=== PATIENT | female | born 1995 | race Caucasian/White ===

== ENCOUNTER 2024-10-16 07:52 | Observation (INO) | payer BC, SELFPAY ==
[2024-10-16 08:10] VITALS: BMI 34.5
--- NOTE | 2024-10-16 08:10 | OBADM ---
This patient, Marisabel Whalen, admitted to the OB room Labor/Delivery/Recovery 103 for observation. Patient/family oriented to hospital policies and general routines including ID bracelet, bed and alarms, visiting hours, pain management, procedures, bathroom and other care routines, personal items, smoking policy, room service/diet, and visiting hours. Patient/Family are encouraged to report perceived risks to care and to ask questions if they do not understand what they are told or what they should do.
--- OUTSIDE RECORDS SUMMARY | 2024-10-16 11:29 | XMS_ITS | Data Portability ---
Author Organization [facility], ADMIN Address [address] [address] Assessment Encounter Date Assessment Date Assessment LastModified by Organization Details LastModified Time 06/15/2022 06/15/2022 Pt with random BRB a day after coitus every 2-3 months. pelvic ultrasound today is completely wnl- discussed results with pt. it could be that pt is having random breakthru bleeding on Lo Loestrin- will change to loestrin (dosing change) and see if that helps [email or web address] Not available 06/15/2022 15:33:59 Plan of Treatment Reminders Order Date Submit Date Provider Last Modified By Organization Details Last Modified Time Details Appointments None recorded. 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 , [facility]23 [facility] [address] [place], [address], 4 04:08:53 HbA1c (hemoglobi n A1c), blood 2023 024 [facility] [address] [place], [address], 4 17:07:19 panel 2023 024 [facility] [address] [place], [address], 4 17:07:18 pap, IG + CT/NG + reflex HPV 2023 024 [facility] [address] [facility], [place], [address], 4 13:09:08 test, urine 2023 024 emani [facility], [address], [address], [place], [address], 4 13:17:17 hormone panel, serum or plasma 2023 024 [facility]), [address] [facility], [place], [address], 4 06:09:59 Referral None recorded. Procedures None recorded. Surgeries None recorded. Imaging None recorded. Medication Orders Loestrin Fe 08/26 (28-Day) 1 mg-20 mcg (21)/75 mg (7) tablet 2021 022 [facility] [id number] [facility], [address] [facility] [facility] [place], [address], 3 16:43:00 Patient TargetsNo targets recorded. Patient Instructions Encounter Date Encounter Id Patient Instructions Last Modified By Organization Details Last Modified Time 03/17/[id number] You may find the following electronic resources helpful. Contraception: [email or web address]://www.acog.or g/womens-health/faq s/-control Planning for : https://www.acog.or g/womens-health/faq s/mqqb-wtomte-fmqvm f-ylsljsywu-pwapcwc [facility]acarias-care Abnormal menstrual bleeding: https://www.acog.or g/womens-health/faq s/anxdx-bqkaknxan-k leeding Mammography: https://www.acog.or g/womens-health/faq s/gohltwuifil-nxr-p jmwf-fjjncbdic-kxqr t-ogj-synxow-proble ms#:~:text=For%20wo men%20at%20average% 20risk,at%20least%2 0age%2075%20years. Menopause and perimenopause: https://www.acog.or g/womens-health/faq s/zkv-nvkyodvkc-udo rs STD screening and prevention: https://www.acog.or g/womens-health/faq s/pdz-dj-shrqgzw-st is Not available 03/16/2023 14:18:03 - Patient is a 27 yo here for annual exam. - Your health is very important. Exercise regularly, maintain a well-balanced diet and try to achieve and maintain an appropriate body weight. - Reviewed screening for pre-cancerous lesions of the cervix (pap smear & HPV testing when appropriate). Discussed the appropriate interval for screening (and when to initiate screening). Discussed the role of HPV in cervical cancer. Patient is up to date on pap with last pap on 03/18/2021 NILM. Due in 2023 per current ASCCP guidelines. - patient doing well with just using condoms for contraception. - Reviewed STD prevention and screening. Offered but patient declined. - All questions were answered in full. - The patient verbalized her understanding. - Reviewed instructions for the patient portal [employer] Not available 03/19/2023 21:36:34 12/04/2023 [id number] - discussed possible etiologies of abnormal periods. Given h/o complete thyroidectomy, will check TFTs along with other labs - info provided for RHINA as patient would like to achieve as well and may be difficult if can't maintain thyroid levels acceptable with h/o thyroid cancer. [employer]press[employer]el[employer]to Not available 12/05/2023 13:33:51 03/07/2024 [id number] specimen collect ion & handling* [email or web address] Not available 03/07/2024 17:06:51 - Patient is a 1 9yo @ 7w1d with CARLO 10/23/2024 (based on today's ultrasound). - Discussed the options for testing for Down syndrome and other forms of aneuploidy. Reviewed the difference between screening tests and diagnostic tests. Reviewed options for screening. Reviewed options for diagnostic testing including CVS and amniocentesis. Offered but patient declines - Reviewed carrier screening with patient. Did not do in prior . Declines screening today. Information pamphlet provided. - Handouts were provided to the patient - Recommend taking vitamins with DHA daily. - Discontinue the use of all non-medicinal drugs and chemicals - Avoid alcoholic beverages. - Patient encouraged not to smoke. - Discussed the content of care including schedule of appointments, lab work, ultrasound. - Provided information and recommendations regarding weight gain and nutrition in . Discussed various foods to avoid. - Hospital and practice style discussed with [employer] system. Patient aware only deliver out of [facility]. - New information given. - Discussed the use of the patient portal for communication during and beyond. - Discussed Covid and current office and hospital protocols. - Pt moving to [facility] at the end of March. Will make one more visit here with ultrasound + MD visit. In the meantime, will look to see where she will be transferring care. Will sign medical release form at next visit. Additional information can be found here: [email or web address].acog.or g/en/Womens%20Healt h/ [email or web address] Not available 03/07/2024 18:12:55 Reason for Referral None Reported. Results Created Date Observation Date Name Description Value Unit Range Abnormal Flag Note LastModifiedBy Organization Detail LastModifiedTime 12/04/19 24 12/05/2023 T4+TS H+LH+ FSH+P ROLAC TIN LH 22.3 mIU/m L Adult Femal e Range Folli cular phase 2.4 - 12.6 Ovula tion phase 14.0 - 95.6 Lutea l phase 1.0 - 11.4 Postm enopa usal 7.7 - 58.5 Not Available [facility] ([facility]) [address] [place], [address], 12/05/2023 06:09:58 12/04/19 24 12/05/2023 T4+TS H+LH+ FSH+P ROLAC TIN FSH 8.3 mIU/m L Adult Femal e Range Folli cular phase 3.5 - 12.5 Ovula tion phase 4.7 - 21.5 Lutea l phase 1.7 - 7.7 Postm enopa usal 25.8 - 134.8 Not Available [facility] ([facility]) [address] [place], [address], 12/05/2023 06:09:58 12/04/19 24 12/05/2023 T4+TS H+LH+ FSH+P ROLAC TIN prolactin 10.3 NG/mL 4.8-33 .4 Not Available [facility] ([facility]) [address] [place], [address], 12/05/2023 06:09:58 12/04/19 24 12/05/2023 T4+TS H+LH+ FSH+P ROLAC TIN TSH 0.044 uIU/m L 0.450- 4.500 below low normal Not Available [facility] ([facility]) [address] [facility], [place], [address], 12/05/2023 06:09:58 12/04/19 24 12/05/2023 T4+TS H+LH+ FSH+P ROLAC TIN thyroxine (T4) 13.0 ug/dL 4.5-12 .0 above high normal Not Available [facility] ([facility]) [address] [place], [address], 12/05/2023 06:09:58 12/04/19 24 12/04/2023 pregn maye test, urine result neg neg Not Available [address] [place] [address], [address], 12/04/2023 10:08:57 12/04/19 24 12/04/2023 pregn maye test, urine internal control checked neg neg Not Available [address] [place] [address], [address], 12/04/2023 10:08:57 03/07/20 24 03/08/2024 CBC/D /PLT+ RPR+R H+ABO +MONET GG... HBsAg screen NEGATI VE negati ve Not Available [facility] ([facility]) [address] [place], [address], 03/09/2024 17:07:18 03/07/20 24 03/08/2024 CBC/D /PLT+ RPR+R H+ABO +MONET GG... HCV Ab NON REACTI VE non reacti ve Not Available [facility] ([facility]) [address] [facility], [place], [address], 03/09/2024 17:07:18 03/07/20 24 03/08/2024 CBC/D /PLT+ RPR+R H+ABO +MONET GG... interpretati on: COMMEN T Not infec porter with HCV unles s early or acute infec tion is suspe cted (whic h may be delay ed in an immun ocomp romis ed indiv idual ), or other evide nce exist s to indic ate HCV infec tion. Not Available [facility] ([facility]) [address] [facility], [place], [address], 03/09/2024 17:07:18 03/07/20 24 03/08/2024 CBC/D /PLT+ RPR+R H+ABO +MONET GG... RPR NON REACTI VE non reacti ve Not Available [facility] ([facility]) [address] [facility], [place], [address], 03/09/2024 17:07:18 03/07/20 24 03/08/2024 CBC/D /PLT+ RPR+R H+ABO +MNOET GG... rubella antibodies, IgG 1.59 index immune >0.99 Non-i mmune <0.90 Equiv ocal 0.90 - 0.99 Immun e >0.99 Not Available [facility] ([facility]) [address] [facility], [place], [address], 03/09/2024 17:07:18 03/07/20 24 03/08/2024 CBC/D /PLT+ RPR+R H+ABO +MONET GG... ABO grouping O Not Available [facility]) [address] [facility], [place], [address], 03/09/2024 17:07:18 03/07/20 24 03/08/2024 CBC/D /PLT+ RPR+R H+ABO +MONET GG... Rh factor POSITI VE Pleas e note: Prior recor ds for this patie nt's ABO / Rh type are not avail able for addit ional verif icati on. Not Available [facility] ([facility]) [address] [place], [address], 03/09/2024 17:07:18 03/07/20 24 03/08/2024 CBC/D /PLT+ RPR+R H+ABO +MONET GG... antibody screen NEGATI VE negati ve Not Available [facility] ([facility]) [address] [place], [address], 03/09/2024 17:07:18 03/07/20 24 03/08/2024 CBC/D /PLT+ RPR+R H+ABO +MONET GG... HIV Ab/P24 Ag screen NON REACTI VE non reacti ve HIV-1 /HIV- 2 antib odies and HIV-1 p24 antig en were NOT detec porter. There is no labor atory evide nce of HIV infec tion. HIV Negat gianluca Not Available [facility] ([facility]) [address] [place], [address], 03/09/2024 17:07:18 03/07/20 24 03/08/2024 CBC/D /PLT+ RPR+R H+ABO +MONET GG... WBC 7.3 x10e3 /uL 3.4-10 .8 normal Not Available [facility] ([facility]) [address] [place], [address], 03/09/2024 17:07:18 03/07/20 24 03/08/2024 CBC/D /PLT+ RPR+R H+ABO +MONET GG... RBC 4.39 x10e6 /uL 3.77-5 .28 normal Not Available [facility] ([facility]) [address] [facility] [place], [address], 03/09/2024 17:07:18 03/07/20 24 03/08/2024 CBC/D /PLT+ RPR+R H+ABO +MONET GG... hemoglobin 14.2 g/dL 11.1-1 5.9 normal Not Available [facility] ([facility]) [address] [facility], [place], [address], 03/09/2024 17:07:18 03/07/20 24 03/08/2024 CBC/D /PLT+ RPR+R H+ABO +MONET GG... hematocrit 41.9 % 34.0-4 6.6 normal Not Available [facility] ([facility]) [address] [facility], [place], [address], 03/09/2024 17:07:18 03/07/20 24 03/08/2024 CBC/D /PLT+ RPR+R H+ABO +MONET GG... MCV 95 fL 79-97 normal Not Available [facility] ([facility]) [address] [place], [address], 03/09/2024 17:07:18 03/07/20 24 03/08/2024 CBC/D /PLT+ RPR+R H+ABO +MONET GG... MCH 32.3 pg 26.6-3 3.0 normal Not Available [facility] ([facility]) [address] [place], [address], 03/09/2024 17:07:18 03/07/20 24 03/08/2024 CBC/D /PLT+ RPR+R H+ABO +MONET GG... MCHC 33.9 g/dL 31.5-3 5.7 normal Not Available [facility] ([facility]) [address] [place], [address], 03/09/2024 17:07:18 03/07/20 24 03/08/2024 CBC/D /PLT+ RPR+R H+ABO +MONET GG... RDW 11.8 % 11.7-1 5.4 Not Available [facility] ([facility]) [address] [facility], [place], [address], 03/09/2024 17:07:18 03/07/20 24 03/08/2024 CBC/D /PLT+ RPR+R H+ABO +MONET GG... platelets 343 x10e3 /uL 150-45 0 normal Not Available [facility] ([facility]) [address] [facility], [place], [address], 03/09/2024 17:07:18 03/07/20 24 03/08/2024 CBC/D /PLT+ RPR+R H+ABO +MONET GG... neutrophils 72 % not estab. normal Not Available [facility] ([facility]) [address] [facility], [place], [address], 03/09/2024 17:07:18 03/07/20 24 03/08/2024 CBC/D /PLT+ RPR+R H+ABO +MONET GG... lymphs 19 % not estab. normal Not Available [facility] ([facility]) [address] [facility], [place], [address], 03/09/2024 17:07:18 03/07/20 24 03/08/2024 CBC/D /PLT+ RPR+R H+ABO +MONET GG... monocytes 7 % not estab. normal Not Available [facility] ([facility]) [address] [facility], [place], [address], 03/09/2024 17:07:18 03/07/20 24 03/08/2024 CBC/D /PLT+ RPR+R H+ABO +OMNET GG... eos 2 % not estab. normal Not Available [facility] ([facility]) [address] [facility], [place], [address], 03/09/2024 17:07:18 03/07/20 24 03/08/2024 CBC/D /PLT+ RPR+R H+ABO +MONET GG... basos 0 % not estab. normal Not Available [facility] ([facility]) [address] [facility], [place], [address], 03/09/2024 17:07:18 03/07/20 24 03/08/2024 CBC/D /PLT+ RPR+R H+ABO +MONET GG... immature cells HEALTH CLAIMS EXAMINER Not Available [facility] ([facility]) [address] [facility], [place], [address], 03/09/2024 17:07:18 03/07/20 24 03/08/2024 CBC/D /PLT+ RPR+R H+ABO +MONET GG... neutrophils (absolute) 5.2 x10e3 /uL 1.4-7. 0 normal Not Available [facility] ([facility]) [address] [facility], [place], [address], 03/09/2024 17:07:18 03/07/20 24 03/08/2024 CBC/D /PLT+ RPR+R H+ABO +MONET GG... lymphs (absolute) 1.4 x10e3 /uL 0.7-3. 1 normal Not Available [facility] ([facility]) [address] [facility], [place], [address], 03/09/2024 17:07:18 03/07/20 24 03/08/2024 CBC/D /PLT+ RPR+R H+ABO +MONET GG... monocytes(ab solute) 0.5 x10e3 /uL 0.1-0. 9 normal Not Available [facility] ([facility]) [address] [place], [address], 03/09/2024 17:07:18 03/07/20 24 03/08/2024 CBC/D /PLT+ RPR+R H+ABO +MONET GG... eos (absolute) 0.2 x10e3 /uL 0.0-0. 4 normal Not Available [facility] ([facility]) [address] [facility], [place], [address], 03/09/2024 17:07:18 03/07/20 24 03/08/2024 CBC/D /PLT+ RPR+R H+ABO +MONET GG... baso (absolute) 0.0 x10e3 /uL 0.0-0. 2 normal Not Available [facility] ([facility]) [address] [facility], [place], [address], 03/09/2024 17:07:18 03/07/20 24 03/08/2024 CBC/D /PLT+ RPR+R H+ABO +MONET GG... immature granulocytes 0 % not estab. Not Available [facility] ([facility]) [address] [facility], [place], [address], 03/09/2024 17:07:18 03/07/20 24 03/08/2024 CBC/D /PLT+ RPR+R H+ABO +MONET GG... immature grans (abs) 0.0 x10e3 /uL 0.0-0. 1 Not Available [facility] ([facility]) [address] [facility], [place], [address], 03/09/2024 17:07:18 03/07/20 24 03/08/2024 CBC/D /PLT+ RPR+R H+ABO +MONET GG... NRBC HEALTH CLAIMS EXAMINER Not Available [facility] ([facility]) [address] [place], [address], 03/09/2024 17:07:18 03/07/20 24 03/08/2024 CBC/D /PLT+ RPR+R H+ABO +MONET GG... hematology comments: HEALTH CLAIMS EXAMINER Not Available [facility] ([facility]) [address] [place], [address], 03/09/2024 17:07:18 03/07/20 24 03/08/2024 CBC/D /PLT+ RPR+R H+ABO +MONET GG... specific gravity 1.015 1.005- 1.030 normal Not Available [facility] ([facility]) [address] [facility], [place], [address], 03/09/2024 17:07:18 03/07/20 24 03/08/2024 CBC/D /PLT+ RPR+R H+ABO +MONET GG... pH 6.0 5.0-7. 5 normal Not Available [facility] ([facility]) [address] [facility], [place], [address], 03/09/2024 17:07:18 03/07/20 24 03/08/2024 CBC/D /PLT+ RPR+R H+ABO +MONET GG... urine-color YELLOW yellow Not Available [facility] ([facility]) [address] [facility], [place], [address], 03/09/2024 17:07:18 03/07/20 24 03/08/2024 CBC/D /PLT+ RPR+R H+ABO +MONET GG... appearance CLEAR clear Not Available [facility] ([facility]) [address] [facility], [place], [address], 03/09/2024 17:07:18 03/07/20 24 03/08/2024 CBC/D /PLT+ RPR+R H+ABO +MONET GG... WBC esterase NEGATI VE negati ve Not Available [facility] ([facility]) [address] [facility], [place], [address], 03/09/2024 17:07:18 03/07/20 24 03/08/2024 CBC/D /PLT+ RPR+R H+ABO +MONET GG... protein NEGATI VE negati ve/tra ce Not Available [facility] ([facility]) [address] [facility], [place], [address], 03/09/2024 17:07:18 03/07/20 24 03/08/2024 CBC/D /PLT+ RPR+R H+ABO +MONET GG... glucose NEGATI VE negati ve Not Available [facility] ([facility]) [address] [facility], [place], [address], 03/09/2024 17:07:18 03/07/20 24 03/08/2024 CBC/D /PLT+ RPR+R H+ABO +MONET GG... ketones NEGATI VE negati ve Not Available [facility] ([facility]) [address] [facility], [place], [address], 03/09/2024 17:07:18 03/07/20 24 03/08/2024 CBC/D /PLT+ RPR+R H+ABO +MONET GG... occult blood NEGATI VE negati ve Not Available [facility] ([facility]) [address] [facility], [place], [address], 03/09/2024 17:07:18 03/07/20 24 03/08/2024 CBC/D /PLT+ RPR+R H+ABO +MONET GG... bilirubin NEGATI VE negati ve Not Available [facility] ([facility]) [address] [place], [address], 03/09/2024 17:07:18 03/07/20 24 03/08/2024 CBC/D /PLT+ RPR+R H+ABO +MONET GG... urobilinogen ,semi-qn 0.2 mg/dL 0.2-1. 0 normal Not Available [facility] ([facility]) [address] [place], [address], 03/09/2024 17:07:18 03/07/20 24 03/08/2024 CBC/D /PLT+ RPR+R H+ABO +MONET GG... nitrite, urine NEGATI VE negati ve Not Available [facility] ([facility]) [address] [facility], [place], [address], 03/09/2024 17:07:18 03/07/20 24 03/08/2024 CBC/D /PLT+ RPR+R H+ABO +MONET GG... microscopic examination COMMEN T Micro scopi c follo ws if indic ated. Not Available [facility] ([facility]) [address] [facility], [place], [address], 03/09/2024 17:07:18 03/07/20 24 03/08/2024 CBC/D /PLT+ RPR+R H+ABO +MONET GG... microscopic examination SEE BELOW: Micro scopi c was indic ated and was perfo rmed. Not Available [facility] ([facility]) [address] [facility], [place], [address], 03/09/2024 17:07:18 03/07/20 24 03/08/2024 CBC/D /PLT+ RPR+R H+ABO +MONET GG... WBC NONE SEEN /hpf 0 - 5 Not Available [facility] ([facility]) [address] [place], [address], 03/09/2024 17:07:18 03/07/20 24 03/08/2024 CBC/D /PLT+ RPR+R H+ABO +MONET GG... RBC NONE SEEN /hpf 0 - 2 Not Available [facility] ([facility]) [address] [place], [address], 03/09/2024 17:07:18 03/07/20 24 03/08/2024 CBC/D /PLT+ RPR+R H+ABO +MONET GG... epithelial cells (non renal) 0-10 /hpf 0 - 10 Not Available [facility] ([facility]) [address] [place], [address], 03/09/2024 17:07:18 03/07/20 24 03/08/2024 CBC/D /PLT+ RPR+R H+ABO +MONET GG... epithelial cells (renal) HEALTH CLAIMS EXAMINER Not Available [facility] ([facility]) [address] [facility], [place], [address], 03/09/2024 17:07:18 03/07/20 24 03/08/2024 CBC/D /PLT+ RPR+R H+ABO +MONET GG... casts NONE SEEN /lpf none seen Not Available [facility] ([facility]) [address] [facility], [place], [address], 03/09/2024 17:07:18 03/07/20 24 03/08/2024 CBC/D /PLT+ RPR+R H+ABO +MONET GG... cast type HEALTH CLAIMS EXAMINER Not Available [facility] ([facility]) [address] [facility], [place], [address], 03/09/2024 17:07:18 03/07/20 24 03/08/2024 CBC/D /PLT+ RPR+R H+ABO +MONET GG... crystals HEALTH CLAIMS EXAMINER Not Available [facility] ([facility]) [address] [facility], [place], [address], 03/09/2024 17:07:18 03/07/20 24 03/08/2024 CBC/D /PLT+ RPR+R H+ABO +MONET GG... crystal type HEALTH CLAIMS EXAMINER Not Available [facility] ([facility]) [address] [facility], [place], [address], 03/09/2024 17:07:18 03/07/20 24 03/08/2024 CBC/D /PLT+ RPR+R H+ABO +MONET GG... mucus threads HEALTH CLAIMS EXAMINER Not Available [facility] ([facility]) [address] [facility], [place], [address], 03/09/2024 17:07:18 03/07/20 24 03/08/2024 CBC/D /PLT+ RPR+R H+ABO +MONET GG... bacteria NONE SEEN none seen/f ew Not Available [facility] ([facility]) [address] [facility], [place], [address], 03/09/2024 17:07:18 03/07/20 24 03/08/2024 CBC/D /PLT+ RPR+R H+ABO +MONET GG... yeast HEALTH CLAIMS EXAMINER Not Available [facility] ([facility]) [address] [facility], [place], [address], 03/09/2024 17:07:18 03/07/20 24 03/08/2024 CBC/D /PLT+ RPR+R H+ABO +MONET GG... trichomonas HEALTH CLAIMS EXAMINER Not Available [facility] ([facility]) [address] [facility], [place], [address], 03/09/2024 17:07:18 03/07/20 24 03/08/2024 CBC/D /PLT+ RPR+R H+ABO +MONET GG... comment HEALTH CLAIMS EXAMINER Not Available [facility] ([facility]) [address] [facility], [place], [address], 03/09/2024 17:07:18 03/07/20 24 03/09/2024 CBC/D /PLT+ RPR+R H+ABO +MONET GG... urine culture,pren atal, w/gbs FINAL REPORT Not Available [facility] ([facility]) [address] [facility], [place], [address], 03/09/2024 17:07:18 03/07/20 24 03/09/2024 CBC/D /PLT+ RPR+R H+ABO +MONET GG... result 1 COMMEN T Mixed uroge nital sakina 50,00 0-100 ,000 colon y formi ng units per mL Not Available [facility] ([facility]) [address] [place], [address], 03/09/2024 17:07:18 03/07/20 24 03/08/2024 HEMOG LOBIN A1C hemoglobin A1C 4.6 % 4.8-5. 6 below low normal Predi abete s: 5.7 - 6.4 Diabe lyndsey: >6.4 Glyce heather contr ol for adult s with diabe lyndsey: <7.0 Not Available [facility] ([facility]) [address] [place], [address], 03/09/2024 17:07:19 03/07/20 24 03/09/2024 IGP, CTNG, RFX APTIM A HPV ASCU chlamydia, nuc. acid amp NEGATI VE negati ve Not Available [facility] ([facility]) [address] [place], [address], 03/13/2024 13:09:08 03/07/20 24 03/09/2024 IGP, CTNG, RFX APTIM A HPV ASCU gonococcus, nuc. acid amp NEGATI VE negati ve Not Available [facility] ([facility]) [address] [place], [address], 03/13/2024 13:09:08 03/07/20 24 03/13/2024 IGP, CTNG, RFX APTIM A HPV ASCU diagnosis: COMMEN T NEGAT GIANLUCA FOR INTRA EPITH ELIAL LESIO N OR SB DELGADO . THIS SPECI MEN WAS RESCR EENED PART OF OUR QUALI TY CONTR OL PROGR AM. Not Available [facility] ([facility]) [address] [place], [address], 03/13/2024 13:09:08 03/07/20 24 03/13/2024 IGP, CTNG, RFX APTIM A HPV ASCU specimen adequacy: COMMEN T Satis facto ry for evalu ation . No endoc ervic al compo nent is ident ified . Not Available [facility] ([facility]) [address] [place], [address], 03/13/2024 13:09:08 03/07/20 24 03/13/2024 IGP, CTNG, RFX APTIM A HPV ASCU clinician provided ICD10: LINDA Brunner Z12.4 Not Available [facility] ([facility]) [address] [place], [address], 03/13/2024 13:09:08 03/07/20 24 03/13/2024 IGP, CTNG, RFX APTIM A HPV ASCU performed by: LINDA [email or web address], Cytot echno logis t (ASCP ) Not Available [facility] ([facility]) [address] [place], [address], 03/13/2024 13:09:08 03/07/20 24 03/13/2024 IGP, CTNG, RFX APTIM A HPV ASCU QC reviewed by: LINDA [email or web address], Super visor y [employer] e[employer] logis t (ASCP ) Not Available [facility] ([facility]) [address] [place], [address], 03/13/2024 13:09:08 03/07/20 24 03/13/2024 IGP, CTNG, RFX APTIM A HPV ASCU . . Not Available [facility] ([facility]) [address] [place], [address], 03/13/2024 13:09:08 03/07/20 24 03/13/2024 IGP, CTNG, RFX APTIM A HPV ASCU note: LINDA Brunner The Pap smear is a scree betty test desig israel to aid in the detec tion of demetra ligna nt and malig nant condi tions of the uteri ne cervi x. It is not a diagn ostic proce dure and shoul d not be used as the sole means of detec ting cervi scarlet cance r. Both false -posi tive and false -nega tive repor ts do occur . Not Available [facility] ([facility]) [address] [facility] [place], [address], 03/13/2024 13:09:08 03/07/20 24 03/13/2024 IGP, CTNG, RFX APTIM A HPV ASCU test methodology: COMMEN T This liqui d based ThinP rep(R ) pap test was thania wood with the use of an image guide mario richardson. Not Available [facility] ([facility]) [address] [facility], [place], [address], 03/13/2024 13:09:08 03/07/20 24 03/13/2024 IGP, CTNG, RFX APTIM A HPV ASCU . COMMEN T The HPV DNA refle x crite jani were not met with this speci men resul t there fore, no HPV testi ng was perfo rmed. Not Available [facility] ([facility]) [address] [facility], [place], [address], 03/13/2024 13:09:08 03/27/20 24 04/04/2024 MATER NIT21 PLUS CORE+ SCA gestation Single ton Not Available [facility] ([facility]) [address] [place], [address], 04/04/2024 04:08:53 03/27/20 24 04/04/2024 MATER NIT21 PLUS CORE+ SCA fraction 7% Not Available [facility] ([facility]) [address] [place], [address], 04/04/2024 04:08:53 03/27/20 24 04/04/2024 MATER NIT21 PLUS CORE+ SCA gestational age > or = 9W: Yes Not Available [facility] ([facility]) [address] [place], [address], 04/04/2024 04:08:53 03/27/20 24 04/04/2024 MATER NIT21 PLUS CORE+ SCA test result Negati ve Not Available [facility] ([facility]) [address] [facility], [place], [address], 04/04/2024 04:08:53 03/27/20 24 04/04/2024 MATER NIT21 PLUS CORE+ SCA label drier comments Linda Arreola speci men showe d an expec porter repre senta tion of chrom osome 21, 18 and 13 mater ial. Clini scarlet corre latio n is sugge sted. Not Available [facility] ([facility]) [address] [facility], [place], [address], 04/04/2024 04:08:53 03/27/20 24 04/04/2024 MATER NIT21 PLUS CORE+ SCA approved by Linda rod MD, PhD, [facility], [facility] Labor atori es Not Available [facility] ([facility]) [address] [facility], [place], [address], 04/04/2024 04:08:53 03/27/20 24 04/04/2024 MATER NIT21 PLUS CORE+ SCA trisomy 21 (down syndrome) Negati ve Not Available [facility] ([facility]) [address] [place], [address], 04/04/2024 04:08:53 03/27/20 24 04/04/2024 MATER NIT21 PLUS CORE+ SCA trisomy 18 (osman syndrome) Negati ve Not Available [facility] ([facility]) [address] [place], [address], 04/04/2024 04:08:53 03/27/20 24 04/04/2024 MATER NIT21 PLUS CORE+ 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 Not Available [facility] ([facility]) [address] [place], [address], 04/04/2024 04:08:53 03/27/20 24 04/04/2024 MATER NIT21 PLUS CORE+ SCA sex Commen t Consi stent with Male Not Available [facility] ([facility]) [address] [place], [address], 04/04/2024 04:08:53 03/27/20 24 04/04/2024 MATER NIT21 PLUS CORE+ 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 Not Available [facility] ([facility]) [address] [place], [address], 04/04/2024 04:08:53 03/27/20 24 04/04/2024 MATER NIT21 PLUS CORE+ 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 Not Available [facility] ([facility]) [address] [place], [address], 04/04/2024 04:08:53 03/27/20 24 04/04/2024 MATER NIT21 PLUS CORE+ 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 The NPV for SCA and ESS canno t be calcu lated as SCA and ESS are only repor porter when an abnor malit y is detec porter. Not Available [facility] ([facility]) [address] [place], [address], 04/04/2024 04:08:53 03/27/20 24 04/04/2024 MATER NIT21 PLUS CORE+ SCA positive predictive value N/A Not Available [facility] ([facility]) [address] [facility], [place], [address], 04/04/2024 04:08:53 03/27/20 24 04/04/2024 MATER NIT21 PLUS CORE+ SCA about the test Commen t The Mater niT(R ) 21 PLUS labor atory -deve loped test (LDT) lyssa zes circu latin g cell- free DNA from a mater nal blood sampl e. This test is used for scree betty purpo ses and not diagn ostic . Clini scarlet corre latio n is recom lisa d. Valid ation data on twin pregn ancie s is limit ed and the abili ty of this test to detec t aneup loidy in highe r multi ple gesta tions has not yet been valid ated. Not Available [facility] ([facility]) [address] [facility], [place], [address], 04/04/2024 04:08:53 03/27/20 24 04/04/2024 MATER NIT21 PLUS CORE+ SCA test method Commen t See Notes Circu latin g cell- free DNA was purif ied from the plasm a compo nent of mater nal blood . The extra cted DNA was then conve rted into a [employer] DNA davy ry for aneup loidy lyssa sis of chrom osome s 21, 18, and 13 via next gener ation seque ncing .[1] Optio nal findi ngs based on the test order inclu de sex chrom osome aneup loidy (SCA) [2], and enhan chantel seque ncing serie s (ESS) [3], which will only be repor porter on as an addit ional findi ng when an abnor malit y is detec porter. SCA testi ng inclu harry infor matio n on X and Y repre senta tion, while ESS testi ng inclu harry delet ions in selec porter regio ns (22q, 15q, 11q, 8q, 5p, 4p, 1p) and triso my of chrom osome s 16 and 22. Not Available [facility] ([facility]) [address] [facility], [place], [address], 04/04/2024 04:08:53 03/27/20 24 04/04/2024 MATER NIT21 PLUS CORE+ SCA performance Commen t The perfo rmanc e forest cteri stics of the Mater niT(R ) 21 PLUS labor atory -deve loped test (LDT) have been deter mined in a clini scarlet valid ation study with pregn ant women at incre ased risk for chrom osoma l aneup loidy .[1-4 ] Not Available [facility] ([facility]) [address] [facility], [place], [address], 04/04/2024 04:08:53 03/27/20 24 04/04/2024 MATER NIT21 PLUS CORE+ SCA performance characterist ics Note ----- ----- ----- ----- ----- ----- ----- ----- ----- ----- ----- ---- ! Sex ! Accur acy: 99.4% ! !---- ----- ----- ----- ----- ----- ----- ----- ----- ----- ----- ---! ! Regio n (asso ciate d syndr ome) ! Est. Sens# ! Est. Spec ! !---- ----- ----- ----- ----- ----- ----- ----- ----- ----- ----- ---! ! Rupertoo my 21 (Down Syndr ome) ! 99.1% ! 99.9% ! !---- ----- ----- ----- ----- ----- ----- ----- ----- ----- ----- ---! ! Rupertoo my 18 (Edwa rds Syndr ome) ! >99.9 % ! 99.6% ! !---- ----- ----- ----- ----- ----- ----- ----- ----- ----- ----- ---! ! Imani my 13 (Pata u Syndr ome) ! 91.7% ! 99.7% ! !---- ----- ----- ----- ----- ----- ----- ----- ----- ----- ----- ---! ! Sex Chrom osome Aneup jez es## ! 96.2% ! 99.7% ! !---- ----- ----- ----- ----- ----- ----- ----- ----- ----- ----- ---! * As repor porter in ISCA datab ase nstd3 7 [http s://w ww.nc bi.nl .[facility] .gov/ dbvar /stud ies/n std37 / ] # Estim ated Sensi tivit y. Sensi tivit y estim ated acros s the obser arabella size distr ibuti on of each syndr ome [per ISCA datab ase nstd3 7] and acros s the range of fract ions obser arabella in routi ne clini scarlet NIPT. Actua l sensi tivit y can also be influ enced by other facto rs such as the size of the event , total seque nce count s, ampli ficat ion bias, or seque nce bias. ## Singl eton gesta tion only. Not Available [facility] ([facility]) [address] [facility], [place], [address], 04/04/2024 04:08:53 03/27/20 24 04/04/2024 MATER NIT21 PLUS CORE+ SCA limitations of the test Commen t While the resul ts of these tests are highl y relia ble, disco rdant resul ts, inclu ding inacc urate sex predi ction , may occur due to place ntal, mater nal, or mosai cism or neopl asm; vanis liane twin; prior mater nal organ trans plant ; or other cause s. These tests are scree betty tests and not diagn ostic ; they do not repla ce the accur acy and preci noble of prena malik diagn osis with [facility] or amnio cente sis. A patie nt with a posit gianluca test resul t shoul d be refer red for ruslan ic couns eling and offer ed invas gianluca prena malik diagn osis for confi rmati on of test resul ts.[5 ] The resul ts of this testi ng, inclu ding the benef its and limit ation s, shoul d be discu ssed with a quali fied healt hcare provi shankar. Pregn maye manag ement decis ions, inclu ding termi natio n of the pregn maye, shoul d not be based on the resul ts of these tests alone . The healt hcare provi shankar is respo nsibl e for the use of this infor matio n in the manag ement of their patie nt. Sex chrom osoma l aneup loidi es are not repor table for known multi ple gesta tions . A negat gianluca resul t does not ensur e an unaff ected pregn maye nor does it exclu de the possi bilit y of other chrom osoma l abnor malit ies or defec ts which are not a part of these tests . An uninf ormat gianluca resul t may be repor porter, the cause s of which may inclu de, but are not limit ed to, insuf ficie nt seque ncing cover age, noise or artif acts in the regio n, ampli ficat ion or seque ncing bias, or insuf ficie nt fract ion. These tests are not inten ded to ident latasha pregn ancie s at risk for neura l tube defec ts or ventr al wall defec ts. Testi ng for whole chrom osome abnor malit ies (incl uding sex chrom osome s) and for subch romos omal abnor malit ies could lead to the poten tial disco very of both and mater nal genom ic abnor malit ies that could have major , minor , or no, clini scarlet signi fican ce. Evalu ating the signi fican ce of a posit gianluca or a non-r eport able resul t may invol ve both invas gianluca testi ng and addit ional studi es on the mothe r. Such inves tigat ions may lead to a diagn osis of mater nal chrom osoma l or subch romos omal abnor malit ies, which on occas ion may be assoc iated with benig n or malig nant mater nal neopl asms. These tests may not accur ately ident latasha tripl oidy, yassine chantel rearr angem ents, or the preci se locat ion of subch romos omal dupli catio ns or delet ions; these may be detec porter by prena malik diagn osis with CVS or amnio cente sis. The abili ty to repor t resul ts may be impac porter by mater nal BMI, mater nal weigh t, mater nal syste heather lupus eryth emato mayra (SLE) and/o r by certa in pharm aceut ical agent s such as low molec ular weigh t hepar in (for examp le: Loven ox(R) , Xapar in(R) , Clexa ne(R) and Fragm in(R) ). Not Available [facility] ([facility]) [address], [place], [address], 04/04/2024 04:08:53 03/27/20 24 04/04/2024 MATER NIT21 PLUS CORE+ SCA note Commen t See Notes [employer] is a subsi diary of Labor atory Corpo ratio n of [employer], using the brand [employer]. This test was devel oped and its perfo rmanc e foerst cteri stics deter mined by [facility]. It has not been clear ed or appro arabella by the Food and Drug Admin istra tion. This labor atory is certi fied under the Clini scarlet Labor atory Impro vemen t Amend ments (CLIA ) as quali fied to perfo rm high compl exity clini scarlet labor atory testi ng and accre dited by the Shaina tadeo of [employer] [employer] logis ts (CAP) . If there is futur e clini scarlet need for addin g Mater niT GENOM E testi ng, this speci men will be avail able until term. [facility] sampl es will not be retai israel beyon d 60 days. [facility] patie nts will have to send a new sampl e for re-se quenc ing ([facility] Test Code: 34438 4). Not Available [facility] ([facility]) [address] [facility], [place], [address], 04/04/2024 04:08:53 03/27/20 24 04/04/2024 MATER NIT21 PLUS CORE+ SCA references Commen t 1. Dale TADEO, et al. [facility] Med. 2012; 14(3) :296- 305. 2. Abdulaziz JONES, et al. Prena t Diag. 2013; 33(6) :591- 597. 3. Patrice C, et al. Clin Chem. 2015 Nov;6 1(4): 608-6 16. 4. Dale TADEO, et al. [facility] Med. 2011; 13(11 ):913 -920. 5. ACOG/ SMFM Pract ice Bulle tin No. 226, May 2020. Not Available [facility] ([facility]) [address] [facility], [place], [address], 04/04/2024 04:08:53 03/27/20 24 04/04/2024 MATER NIT21 PLUS CORE+ SCA pdf . Not Available [facility] ([facility]) [address] [facility], [place], [address], 04/04/2024 04:08:53 06/15/20 22 06/15/2022 US, trans vagin al No observ ation record ed. [facility] [address], [place], [address], 03/19/2023 21:32:40 03/07/2003/07/2024 US, obste tric, 1st trime ster No observ ation record ed. [facility] [address], [place], [address], 03/30/2024 13:01:18 03/27/20 24 03/27/2024 US, obste tric, 1st trime ster No observ ation record ed. [facility] [address], [place], [address], 03/29/2024 15:42:02 Result Notes None recorded. 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 On 12/12/2019 TSH 1.74, FT 1.19, T3 135 (wnl). On 02/26 TSH 2.54, fT4 1.22. [x] On 05/07 at 27w3 TSH 3.0, freeT4 0.095. Epic message sent to Dr. Gamez (caesar) w/results , no need to start meds. Jaimee Hernandez MD [address], [place], [place], [address], [facility] 17:57:46 Routine antenata l care Completed O+, rubella NON-immun e, declined genetic screening , AFP neg, [x] s/p flu shot on 04/16/2020 [x] s/p tdap on 05/07 [x ] GBS done on 07/09/2020 neg Jaimee Hernandez MD [address] [facility] [address], [place], [place], [address], [facility] 17:57:46 Asthma [id number] Completed Jaimee Hernandez MD [address] [facility] [address], [place], [place], [address], [facility] 17:57:46 Anemia [id number] Completed Hgb 9.6 at 27w3 on 05/07/2020 . start Fe/colace Jaimee Hernandez MD [address] [facility] [address], [place], [place], [address], [facility] 17:57:46 Mass of thyroid gland 119784111 Active 2019 Thyroid mass: seen by endo, FNA on 01/03/2020 path showing follicula r lesion of unknown significa nt (15% risk of malignanc y) during . Was repeat after , per patient continued to shows follicula r lesion of unknown significa nce and plans to have surgery for removal on 05/04/2021 . On 12/12/2019 TSH 1.74, FT 1.19, T3 135 (wnl). Jaimee Hernandez MD [address] [facility] [address], [place], [place], [address], [facility] 16:43:46 Pregnanc y [id number] Completed 201908/18/2020 Jaimee Hernandez MD [address] [facility] [address], [place], [place], [address], [facility] 4 16:57:30 Pregnanc y [id number] Completed 202304/05/2024 Jaimee Hernandez MD [address] [facility] [address], [place], [address], [facility] 4 16:57:30 Routine antenata l care Completed - dating by US on 03/07/2024 = 7w1 - O+, rubella immune - cell free DNA wnl Jaimee Hernandez MD [address] [facility] [address], [place], [place], [address], [facility] 4 17:59:08 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 Completed - s/p complete thyroidec meena for papillary thyroid carcinoma (2019) - f/b endo - on levothyro xine (137mcg 5d/w, half tab 2d/w) - on 03/05/2024 : TSH 2.734, free T4 1.29 Jaimee Hernandez MD [address] [facility] [address], [place], [place], [address], [facility] 4 18:09:13 Asthma [id number] Completed Jaimee Hernandez MD [address] [facility] [address], [place], [place], [address], [facility] 4 18:09:17 Migraine [id number] Completed Jaieme Hernandez MD [address] [facility] [address], [place], [place], [address], [facility] 4 18:09:25 Problem Notes None recorded. Procedures Surgical History Date Name Laterality Status Provider Name and Address Organization Details Recorded Time 03/27/20 24 MW USG First Trimester completed DEBBY CURRAN [facility] 03/27/2024 15:20:26 03/07/20 24 U/S OB FIRST TRIMESTER ([facility] completed KAN GALLEGOS [facility] 03/07/2024 15:30:51 03/07/20 24 Date of Last Pap Smear completed Jaimee Hernandez MD [address] [facility] [address], [place], [address], [place] [facility] 03/13/2024 16:41:05 06/15/20 22 MW USG GYNE completed DEBBY CURRAN [place] [facility] 06/15/2022 15:21:40 05/04/20 21 thyroidectomy completed Jaimee Hernandez MD [address], [place], [address], [place] [facility] 10/24/2021 21:00:53 08/13/19 21 Vaginal Delivery completed Jaimee Hernandez MD [address], [place], [address], [place] [facility] 08/18/2020 17:59:41 08/04/20 20 MW USG Third Trimester completed [place]BB[place] CURRAN [place] [facility] 08/04/2020 11:28:02 08/04/20 20 Non-Stress Test [facility] completed Jaimee Hernandez MD [address], [place], [address], [place] [facility] 08/01/2020 21:36:31 07/09/20 20 MW USG Third Trimester completed DEBB[place] CURRAN [place] [facility] 07/09/2020 10:26:51 extraction of wisdom tooth completed Jaimee Hernandez MD [address], [place], [address], [place] [facility] 04/25/2020 10:49:10 Imaging Results Imaging Date Name Status LastModified by Organization Details LastModified Time 06/15/2022 US, transvaginal completed [address], [place], [address], 03/19/2023 21:32:40 03/07/2024 US, obstetric, 1st trimester completed [address], [place], [address], 03/30/2024 13:01:18 03/27/2024 US, obstetric, 1st trimester completed [address], [place], [address], 03/29/2024 15:42:02 Procedure Notes None recorded. Medical Equipment None Reported. Allergies Allergen ID Allergen Name Allergen Category Reaction Reaction Severity Criticality Documentation Date Start Date Code Code System Note Provider Name and Address Organization Details Recorded Time 776 tree and shrub pollen environme nt,medica tion Not available Not available Not available 04/25/2020 [id number] UNK Jaimee Hernandez MD [address] [facility] [address], [place], [address], [facility] 0 10:49:38 Medications Name Sig Start Date Stop Date Status Note LastModified by Organization Details LastModified Time levothyro xine 137 mcg tablet TAKE 6 TABS/WEE K INSTRUCT ED PER DOCTOR active Not Available Not Available No t Available Apri 0.15 mg-0.03 mg tablet 05/23 completed Not Available Not Available Not Available levothyro xine 125 mcg tablet TAKE 1 TABLET BY MOUTH EVERY DAY BEFORE BREAKFAS T 03/11 completed Not Available Not Available Not Available norethind michael (contrace ptive) 0.35 mg tablet TAKE 1 TABLET BY MOUTH EVERY DAY 11/22 completed pt sent portal message on and stopped due to AUB. Resolved once stopped POP. Will use condoms for now. Not Available Not Available Not Available sertralin e 50 mg tablet TAKE 1 TABLET BY MOUTH EVERY DAY active Not Available Not Available No t Available FE 08/26 (28) 1 mg-20 mcg (21)/75 mg (7) tablet TAKE 1 TABLET BY MOUTH EVERY DAY DIRECTED FOR 84 DAYS 03/17 completed stopped in 2022 Not Available Not Available Not Available breast pump 03/11 completed Not Available Not Available Not Available nitrofura ntoin monohydra te/macroc rystals 100 mg capsule 06/11 completed Not Available Not Available Not Available iron 03/11 completed Not Available Not Available Not Available Stool Softener 03/03 completed Not Available Not Available Not Available 03/11 completed Not Available Not Available Not Available Lo Loestrin Fe 1 mg-10 mcg (24)/10 mcg (2) tablet TAKE 1 TABLET BY MOUTH EVERY DAY 03/17 completed Not Available Not Available Not Available + DHA active Not Available Not Available Not Available Vitals Date Recorded Body height Body mass index (BMI) Body weight Systolic blood pressure Diastolic blood pressure Provider Name and Address Organization Details Last Updated DateTime 12/04/2023 167.64 cm 30.8 kg/m2 46185.14 g 118 mm[Hg] 82 mm[Hg] KIMBERLEY CABEZAS [facility] [place] 4 10:00:23 Date Recorded Body height Body mass index (BMI) Body weight Systolic blood pressure Diastolic blood pressure Provider Name and Address Organization Details Last Updated DateTime 03/07/2024 167.64 cm 30.5 kg/m2 10221.96 g 118 mm[Hg] 82 mm[Hg] KIMBERLEY CABEZAS [facility] [place] [facility] 4 15:38:56 Date Recorded Body weight Systolic blood pressure Diastolic blood pressure Provider Name and Address Organization Details Last Updated DateTime 03/27/2024 70140.1426 7 g 128 mm[Hg] 82 mm[Hg] Tonie Meraz [facility] [place] 03/27/2024 15:53:51 Date Recorded Body height Body mass index (BMI) Body weight Systolic blood pressure Diastolic blood pressure Provider Name and Address Organization Details Last Updated DateTime 06/15/2022 167.64 cm 28.4 kg/m2 65174.26 g 120 mm[Hg] 74 mm[Hg] Melissa Vizcaino [facility] 2 15:21:10 Date Recorded Body height Body mass index (BMI) Body weight Systolic blood pressure Diastolic blood pressure Provider Name and Address Organization Details Last Updated DateTime 03/17/2023 167.64 cm 30.8 kg/m2 98988.14 g 122 mm[Hg] 80 mm[Hg] May Htun (TERMED) [facility] 3 16:41:36 Social History Question Answer Notes LastModified by Organizat ion Details LastModified Time Tobacco Smoking [place] [address] [place] [address] [address], [place], [address], [facility] 04/25/2020 10:47:25 Do You Have An Advance Directive? No [email or web address] Information not available 07/24/2020 What Is Your Level Of Alcohol Consumption? Occasional Information not available 03/19/2023 If You Are , What Was Your Level Of Alcohol Consumption Prior To ? Occasional Information not available 03/11/2022 How Many Years Have You Consumed Alcohol? 7 Information not available 03/19/2023 Is Anesthesia Consult Planned? No Information not available 03/19/2023 Are You Currently Sexually Active With Anyone Who Has Traveled (within The Last 12 Weeks) To A Zika-affected Area? No Information not available 03/19/2023 Plan No Information no t available 03/19/2023 What Is Your Level Of Caffeine Consumption? Moderate 1 Cup Coffee/d ay Information not available 07/16/2020 Live With Cats/exposure To Cat Litter No Information not available 03/19/2023 In The 14 Days Before Symptom Onset, Have You Had Close Contact With A Laboratory-confir med COVID-19 While That Case Was Ill? No Information not available 03/19/2023 In The 14 Days Before Symptom Onset, Have You Had Close Contact With A Person Who Is Under Investigation For COVID-19 While That Person Was Ill? No Information not available 03/19/2023 Have You Been To An Area Known To Be High Risk For COVID-19? No Information not available 03/19/2023 Are You Currently Employed? No Information not available 07/16/2020 What Type Of Diet Are You Following? REGULAR Information not available 07/16/2020 Which Illicit Or Recreational Drugs Have You Used? None Information not available 04/25/2020 Do You Or Have You Ever Used E-cigarettes Or Vape? Never Used Electronic Cigarettes Information not available 07/16/2020 Have There Been Any Changes To Your Family Or Social Situation? No Information no t available 03/19/2023 Frequent Air Travel No Information not available 03/19/2023 Illicit Drugs Pre- Occassional Information not available 03/19/2023 Live Alone Or With Others? With Others Information not available 03/19/2023 Domestic Violence No Informa tion not available 04/25/2020 Ethnic Background White Or Information not available 03/17/2023 History Of Domestic Violence No Information no t available 03/17/2023 Are You Passively Exposed To Smoke? No Information no t available 03/17/2023 Marital Status Informatio n not available 03/19/2023 What Was The Date Of Your Most Recent Tobacco Screening? 03/07/2024 [email or web address] Information not available 03/07/2024 Do You Use Protection During Sex? Always Information not available 03/19/2023 What Is Your Relationship Status? Information not available 03/19/2023 Do You Use Your Seat Belt Or Car Seat Routinely? Yes Information not available 03/19/2023 Seat Belts Used Routinely Yes Information not available 03/19/2023 Are You Sexually Active? Yes Information not available 03/19/2023 Do You Have Smoke And Carbon Monoxide Detectors In Your Home? Yes Information not available 03/19/2023 Are You Passively Exposed To Smoke? No Information no t available 03/19/2023 Do You Or Have You Ever Used Smokeless Tobacco? Never Used Smokeless Tobacco Information not available 07/16/2020 General Stress Level Low Information not available 03/19/2023 Do You Use Any Illicit Or Recreational Drugs? No Information not available 03/19/2023 Has Tobacco Cessation Counseling Been Provided? No Information not available 03/19/2023 Do You Have Symptoms Associated With Zika Virus (fever, Rash, Joint Pain, Or Conjunctivitis)? No Information not available 03/19/2023 Have You Recently (within The Last 12 Weeks, Or During A Current ) Traveled To Or Lived In A Zika-affected Area? No Information not available 03/19/2023 Do You Or Have You Ever Used Any Other Forms Of Tobacco Or Nicotine? No Information not available 03/19/2023 Sex: Female Functional Status Question Answer Note LastModified by Organizat ion Details LastModified Time Do you have transportation difficulties? No Information not available 03/19/2023 Are you able to care for yourself? Yes Information n ot available 03/19/2023 What is your exercise level? Occasional Information not available 03/19/2023 Mental Status Question Answer Note LastModified by Organization D etails LastModified Time Do you have difficulty concentrating, remembering or making decisions? No Information no t available 03/19/2023 Family History Relationship Description Onset Age of this Age Resolved Age Notes LastModified by Organization Details LastModified Time Mother Diabetes mellitus [email or web address] Not available 2019 10:47:06 Mother Anxiety disorder ybalbuena Not available 2023 09:57:54 Mother Mental disorder ybalbuena Not available 2023 09:57:54 Maternal Grandmother Anxiety disorder ybalbuena Not available 2023 09:57:54 Maternal Grandmother Mental disorder ybalbuena Not available 2023 09:57:54 Brother Anxiety disorder ybalbuena Not available 2023 09:57:54 Brother Mental disorder ybalbuena Not available 2023 09:57:54 Sister Anxiety disorder ybalbuena Not available 2023 09:57:54 Sister Mental disorder ybalbuena Not available 2023 09:57:54 Notes:No fhx of breast, ovar cleo or colon cancer Medical History Condition Response Pulmonary- Asthma Y Endocrinology- Hypothyroidism Y Neurology- Headaches/Migraines Y Cancer-Other Y Gynecological History Statement/Question Response Flow Moderate History of Fibroids N Date of LMP 01/07/2024 HPV Test Not Applicable Current Control Method: None N History of Recurrent Ovarian Cysts N HPV Vaccine Completed Condoms 14 Abnormal Pap N History of PCOS N History of Infertility N History of Cervical Dysplasia N History of Vulvar Dysplasia N Y Duration of Flow (days) 4 History of HPV N Current Control Method Age at Menarche 13 History of Endometriosis N Frequency of Cycle (Q days) 29 Sexually Active? Y History of Abnormal PAP N History of Dysmenorrhea Y Menses Monthly N Date of Last Pap Smear 03/07/2024 Sexual Problems? N History of Sexually Transmitted Infectio n N N Obstetrics History GPAL:G 2 P 1 0 0 1 Type Value Multiple Births 0 Full Term 1 Induced 0 Spontaneous 0 Premature 0 Living 1 Ectopics 0 Total 2 Immunizations Vaccine Type Date Status Note Provider Nam e and Address Organization Details Recorded Time MMR 08/11[facility]2020 [facility] 09/24/2020 11:11:54 COVID-19, mRNA, LNP-S, PF, 30 mcg/0.3 mL dose 12/22/2020 completed Melissa Vizcaino [facility] 03/11/2022 09:57:32 COVID-19, mRNA, LNP-S, PF, 30 mcg/0.3 mL dose 01/12/2021 completed Melissa Vizcaino [facility] for [facility] 03/11/2022 09:57:32 [facility]dap 05/07/[facility] 05/07/2020 10:22:34 Past Encounters Encounter ID Performer Location Encounter Start Date Encounter Closed Date Diagnosis/Indication Diagnosis SNOMED-CT Code Diagnosis ICD10 Code Diagnosis Note [id number] Jaimee Hernandez MD [facility] [address] [facility],[address] [place] [address] 05/07/2020 09:36:13 05/07/2020 10:18:45 screening 365260971 Z36.89 Gestation period, 27 weeks 21210766 Z3A.27 Depression screening 171 719350 Z13.32 Administra tion of diphtheria, pertussis, and tetanus vaccine 941635116 Z23 Mass of thyroid gland 23 9789981 E04.9 [id number] Jaimee Hernandez MD [facility] [address] [facility],[address] [place] [address] 05/28/2020 09:31:35 05/28/2020 11:13:47 Routine care 219068305 Z34.03 [id number] Jaimee Hernandez MD [facility] [address] [place] [address] 06/11/2020 10:04:11 06/11/2020 10:33:17 Gestation period, 32 weeks 4424446 Z3A.32 Routine an tenatal care 006287636 Z34.03 [id number] Jaimee Hernandez MD [facility] [address] [place] [address] 06/25/2020 09:48:59 06/25/2020 11:16:40 Gestation period, 34 weeks 44882598 Z3A.34 Routine an tenatal care 455383336 Z34.03 [id number] Jaimee Hernandez MD [facility] [address] [place] [address] 07/09/2020 09:55:16 07/09/2020 11:05:53 Routine care 615642153 Z34.03 Gestation period, 36 weeks 65138081 Z3A.36 screening 2437 48469 Z36.85 [id number] DEBBY CURRAN [facility] [address] [place] [address] 07/09/2020 09:55:23 07/09/2020 10:27:17 screening 644373445 Z36.88 [id number] Jaimee Hernandez MD [facility] [address] [place] [address] 07/16/2020 09:36:14 07/16/2020 09:58:45 Gestation period, 37 weeks 21108224 Z3A.37 Routine an tenatal care 915764442 Z34.03 [id number] Jaimee Hernandez MD [facility] [address] [place] [address] 07/24/2020 10:47:25 07/24/2020 11:48:24 Gestation period, 38 weeks 78311053 Z3A.38 Routine an tenatal care 575171969 Z34.03 [id number] Jaimee Hernandez MD [facility] [address] [place] [address] 07/29/2020 10:26:05 07/29/2020 12:28:09 Gestation period, 39 weeks 73983014 Z3A.39 Routine an tenatal care 240646367 Z34.03 [id number] Jaimee Hernandez MD [facility] [address] [place] [address],[address] [place] [address] 08/04/2020 11:15:49 08/04/2020 14:37:12 Gestation period, 40 weeks 30955835 Z3A.40 Routine an tenatal care 453014540 Z34.03 Post-term 9096 8009 O48.0 [id number] DBEBY CURRAN [facility] [address] [place] [address],[address] [place] [address] 08/04/2020 11:16:41 08/04/2020 14:36:35 Post-term 81944650 O48.0 Gestation period, 40 weeks 88332328 Z3A.40 [id number] Jaimee Hernandez MD [address] [place] [address] 08/13/2020 11:22:16 08/14/2020 10:07:30 Gestation period, 41 weeks 08084480 Z3A.41 Vaginal delivery 8952665 07 O80 Single live 220809 009 Z37.0 [id number] Jaimee Hernandez MD [address] [address] 09/24/2020 11:09:11 09/24/2020 14:34:41 care 692522325 Z39.2 Contracept ion care management 064640619 Z30.9 Maternal p ostpartum depression screening 4334746282 18034 Z13.32 [id number] Jaimee Hernandez MD [address] [address] 03/18/2021 13:14:34 03/18/2021 14:42:34 Gynecologic examination 41307789 Z01.397 [id number] Jaimee Hernandez MD [address] [place] [address] 03/11/2022 09:55:12 03/11/2022 12:12:04 Gynecologic examination 51323717 Z01.419 Contracept ion care management 214100701 Z30.9 [id number] MD HEVER Renee [address] [place] [address] 06/15/2022 14:53:28 06/15/2022 16:13:34 Irregular periods 81662315 N92.6 [id number] MD HEVER Melara [address] [facility],[address] [place] [address] 03/17/2023 16:37:11 03/17/2023 17:08:36 Gynecologic examination 97274918 Z01.850 [id number] MD HEVER Melara [address] [place] [address] 12/04/2023 09:53:13 12/04/2023 10:36:30 Irregular periods 53230367 N92.6 Secondary oligomenorrhea 91003610 N91.4 [id number] MD HEVER Melara [address] [facility],[address] [place] [address] 03/07/2024 14:53:32 03/07/2024 16:23:31 Urine test positive 002343226 Z32.01 Venereal d isease screening 934450568 Z11.3 Finding of viability of 437724577 O36.8990 Screening for malignant neoplasm of cervix 234202589 Z12.4 size does not accord with dates 882373124 O36.90X0 [id number] [address] [place] [address] 03/27/2024 14:46:33 03/27/2024 18:54:04 Routine care 842853437 Z34.91 Gestation period, 10 weeks 29672128 Z3A.10 screening 2437 35661 Z36.0 Hypothyroi dism in 822373351 E03.9 Finding of viability of 805675712 O36.8990 Health Concerns Section Related Observation LastModified by Organization Detai ls LastModified Time None Recorded Concern Status LastModified by Organization Details LastModified Time None Recorded Advance Directives Directive N: Payers Encounter Date Sequence Insurance Name Policy Number Policy Valle[place] Covered Member ID Vallejo Member ID Guarantor Name 06/15/2022 1 [place] [id number] Miguel Angel Whalen [id number] Marisabel Whalen 03/17/2023 1 [place] [id number] Miguel Angel Whalen [id number] Marisabel Whalen 12/04/2023 1 [place] [id number] Miguel Angel Whalen [id number] Marisabel Whalen 03/07/2024 1 [place] [id number] Miguel Angel Whalen [id number] 36 Marisabel Whalen 03/27/2024 1 [place] [id number] Miguel Angel Whalen [id number] 36 Marisabel Whalen Notes Date Note Type Note Provider Name and Address Organization Details Recorded Time 06/15/2022 text/html Irregular PeriodsReported bypatient.Onset/Timing :past 2 cycles Quality:moderate Duration:7 days/month Severity:moderate Associated Symptoms:no fatigue; no irritability; good quality of life Pt is on OCP since 09/2021- about every 2-3 months she has some BRB the day after intercourse. 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 Commercial Litigation Attorney was{{ACCEPTED DECLINED *}} The patient is a {{single * divo rced}} , {{ 27#}} yo with LMP of {{ 03/16/2023#}} . She requests annual examination.- Patient reports stopped using OCPS in December 2022 to see if helped with mood and weight gain. Her periods are regular occurring every {{ 30-45#}} days and last for {{ 4#}} days. The flow is moderate. She denies intermenstrual bleeding. She denies dysmenorrhea. She denies vaginal itching, burning, irritation, and abnormal discharge. She is sexually active and reports no problems with intercourse. The patient is using {{ condoms#}} as her current method of control. The patient states she is satisfied with her current method of control. The patient denies a history of liver disease, clotting disorder, migraines with aura, gallbladder disease, and smoking. Patient does not have a family history of breast cancer. Patient does not have a family history of ovarian cancer. Mammogram is not applicable for this patient. The patient's last pap was {{ NILM on 03/18/2021#}} . She denies h/o abnormal pap. She {{has* has not}} received her Gardasil series. Jaimee Hernandez MD [address], [place], [address], [facility] 03/19/2023 21:37:20 12/04/2023 text/html Patient is a 28yo with history significant for complete thyroidectomy in 04/2021 due to papillary thyroid carcinoma. Pt presents with amenorrhea. Patient reports typically had menstrual cycles q30-45 days with LMP of 05/15/2023. Patient reports since then has not had any periods. She reports was doing ovulation kits prior to May and turning positive but has not had any positive ovulation kits since May 2023. Patient has done tests at home and negative. Upreg test here today also negative. Patient reports last had thyroid medication dosage changed over a year ago. (In epic, appears changed in 04/2023). Had recheck 06/15/2023 with no change and then on 10/06/2023 TSH 0.129L, free T4 1.74. She saw her heliarc welder Dr Gamez in October 2023 and no adjustments were made. Reports possibly having mild hot flashes but doesn't know when that started.Denies vaginal dryness. Patient with on 08/11/2020 and stopped in Spring 2021. No nipple discharge. No vision changes. No headaches. No change in bowel movement. No change in weight since March 2023. Jaimee Hernandez MD [address] [facility] [address], [place], [address], [place] [facility] 12/05/2023 13:37:02 03/07/2024 text/html Commercial Litigation Attorney offere d per [facility] policy. Commercial Litigation Attorney was{{ACCEPTED DECLINED *}}.New Patient Obstetrical HistoryPatient is a {{FREE TEXT 28#}} year old female, G{{FREE TEXT 2#}}P{{FREE TEXT 1001#}}.Menstrual cycles are {{regular IRREGULAR*}} . Pt with LMP of {{ 6#}}/{{ 2#}}/ {{ 2024#}}.Based on LMP estimated gestational age is {{ 8#}} wks and {{ 4#}} days.Ultrasound was performed on {{ 8#}}/{{ 1#}}/{{ 202 4#}} which showed estimated gestational age of {{ 7#}} wks and {{ 1#}} days.Final EDC determined to be {{ 03#}}/{{ 19#}}/{{ 2 024#}} based on {{LMP US*}}. OB history is significant for the following {{FREE TEXT - h/o on 08/11/2020#}}PMH:Hyperte nsion: {{yes no*}}Gestational diabetes: {{yes no*}}Diabetes: {{yes no*}}Rheumatolog ic disorder (e.g. SLE): {{yes no*}}Neurologic disorder: {{yes no*}}Thyroid disease: {{yes* no}} - papillary thyroid carcinoma s/p complete thyroidectomy on 04/2021.Infertility: {{yes no*}}DVT/PE/APS: {{yes no*}} She has been taking the following medications since her LMP: {{FREE TEXT levothyroxine, PNV#}}.She {{has has not*}} been exposed to any toxins, chemicals or radiation since her LMP.She {{did did not*}} require fertility treatmentSince her LMP she has had the following symptoms: {{FREE TEXT nausea, headaches, fatigue, food aversions#}} Infection HistoryPatient of partner has history of genital herpes {{no* yes}}History of STD (GC, CT, HPV, syphilis, HIV) {{no* yes}}History of LEEP, cervical conization, cervical laser ablation or cervical cryosurgery {{no* yes}}Lives with someone with TB or TB exposed {{no* yes}}Rash or viral illness since LMP {{no* yes}}Have you received the flu vaccine this year {{no* yes}} Other HistoryThere {{are are not*}} cats in the home.She {{has* has not}} had childhood varicella disease or chicken pox vaccine in the past.Patient {{has has not*}} been the victim of rape or other sexual assault.Have you ever received a blood transfusion {{no* yes}}Will you approve a blood transfusion in case of an emergency {{no yes*}} [place]PQC Screening ToolDo you feel unsafe in your relationship with your partner of with anyone in your environment? {{no* YES}}Have you ever had difficulties in your life due to alcohol or drugs including prescription drugs? {{no* YES}}Does your partner, your friends or anyone else close to you have any problems with alcohol or drug use? {{no* YES}}Do either of your parents have a history of any problems with alcohol or drug use?{{no* YES}}Since your LMP have your used alcohol or drugs? {{no* YES}}Since your LMP have you smoked cigarettes, used tobacco products or vaped? {{no* YES}}(If the patient answers YES to any of the above questions, additional screening and/or counseling might be appropriate) Mental HealthDo you have a history depression or depression related illness {{no* yes}} Jaimee Hernandez MD [address] [facility] [address], [place], [address], [facility] 03/07/2024 18:14:00 OBGyn Episode Ob Episode Information Episode Created Date Number of Fetuses Patient Bloodtype Patient rh Status Prepregnancy Weight lbs Domestic Partner Domestic Partner Phone Father Name Manager Of Housekeeping Status 04/11/20 20 1 O Positive Miguel Angel CLOSED Fetus Data First Name Last Name Admitted to NICU Weight (g) Sex Living Outcome Pediatric Complications Fetus ID Race Codes Race Delivery Type RIver false 3795.15 36369 M Full Term 1059 Vaginal Problems Problem Notes Growth US @ 36w = EFW 3156g (66.4%) , YOUNG 13, vertexGrowth US on 08/04 @ 40w1 EFW 4103g, 91%, YOUNG 18. Problem Name Start Date End Date Resolution Snomed Code Not e Asthma 008513684 Anemia 397217956 Hgb 9.6 at 27w3 on 05/07/2020. start Fe/colace Rubella non-immune [id number] n eeds MMR Disorder of thyroid gland 58524471 Thyroid mass: s een by endo, FNA on 01/03/2020 path showing follicular lesion of unknown significant (15% risk of malignancy), deferred FNA until . On 12/12/2019 TSH 1.74, FT 1.19, T3 135 (wnl). On 02/26 TSH 2.54, fT4 1.22. [x] On 05/07 at 27w3 TSH 3.0, freeT4 0.095. BrightLine message sent to Dr. Gmaez (caesar) w/results, no need to start meds. Routine care 750865897 O+, rubella NON-immune, declined genetic screening, AFP neg, [x] s/p flu shot on 04/16/2020 [x] s/p tdap on 05/07 [x ] GBS done on 07/09/2020 neg Carlo Calculation Initial Carlo Date Initial Exam Date Initial Exam Provider Initial Ultrasound Date Last Menstrual Period Date Ultra Sound Weeks Gestation 08/03/2020 04/25/2020 12/05/2019 09/15/2019 5 Eighteen To Twenty Week Carlo Update Ultra Sound Date Fundal Height At Umbil Quickening Date Ultra Sound Latest Weeks Gestation Final Carlo Confirmed By Final Carlo Confirmed Date Final Carlo Date Ultra Sound Latest Days Gestation 0 [email or web address] 04/25/2020 08/03/20 20 0 Pre-randolph Flowsheet Flowsheet Date 05/07/2020 Ferrell Score Blood Edema Fundus Height Fundus Units Glucose Ketones Leukocytes Nitrite Labor Signs Protein Cervic Dilation Cervic Effacement Cervic Station none 27 cm none none neg Type Weight in lbs Pre/Post Dialysis Refused Weight 176.677755613440 BP Diastolic BP Location Tested BP Systolic BP Type 76 124 Fetus Heart Rate Present A 145 Present Fetus Movement A Yes Comments Doing well. +Fm, no lof/vb/c trx. 3rd trimester laps done today + TFTs (due to h/o thyroid mass). EDPS wnl. tdap given today. RTO 3 wks. Flowsheet Date 05/28/2020 Ferrell Score Blood Edema Fundus Height Fundus Units Glucose Ketones Leukocytes Nitrite Labor Signs Protein Cervic Dilation Cervic Effacement Cervic Station none neg Type Weight in lbs Pre/Post Dialysis Refused Weight 182.323554456429 BP Diastolic BP Location Tested BP Systolic BP Type 76 114 Fetus Heart Rate Present A 145 Present Fetus Movement A Yes Comments Doing well, reports good FM, n lof/vb/ctrx. Has not yet started Fe. RTO 2 wks. Flowsheet Date 06/11/2020 Ferrell Score Blood Edema Fundus Height Fundus Units Glucose Ketones Leukocytes Nitrite Labor Signs Protein Cervic Dilation Cervic Effacement Cervic Station 32 cm none trace Type Weight in lbs Pre/Post Dialysis Refused Weight 183.146808392868 BP Diastolic BP Location Tested BP Systolic BP Type 72 120 Fetus Heart Rate Present A 140 Present Fetus Movement A Yes Comments Good FM, no lof/vb/ctrx. RTO 2 wks. Flowsheet Date 06/25/2020 Ferrell Score Blood Edema Fundus Height Fundus Units Glucose Ketones Leukocytes Nitrite Labor Signs Protein Cervic Dilation Cervic Effacement Cervic Station 34 cm none none neg Type Weight in lbs Pre/Post Dialysis Refused Weight 183.436378652149 BP Diastolic BP Location Tested BP Systolic BP Type 80 122 Fetus Heart Rate Present A 130 Present Fetus Movement A Yes Comments Doing well, no complaints. R TO 2wks for growth US and GBS. PTL precautions reviewed. Flowsheet Date 07/09/2020 Ferrell Score Blood Edema Fundus Height Fundus Units Glucose Ketones Leukocytes Nitrite Labor Signs Protein Cervic Dilation Cervic Effacement Cervic Station Type Weight in lbs Pre/Post Dialysis Refused BP Diastolic BP Location Tested BP Systolic BP Type Fetus Heart Rate Present Fetus Movement Comments Flowsheet Date 07/09/2020 Ferrell Score Blood Edema Fundus Height Fundus Units Glucose Ketones Leukocytes Nitrite Labor Signs Protein Cervic Dilation Cervic Effacement Cervic Station 36 wks none none neg Type Weight in lbs Pre/Post Dialysis Refused Weight 188.479884640044 BP Diastolic BP Location Tested BP Systolic BP Type 80 R arm 120 sitting Fetus Heart Rate Present A 140 Present Fetus Movement A Yes Comments Doing well. Reports good FM, no lof/vb/ctrx. GBS done today. Growth US today 3156g (66%), YOUNG 13, vertex. Rto 1 wk. Flowsheet Date 07/16/2020 Ferrell Score Blood Edema Fundus Height Fundus Units Glucose Ketones Leukocytes Nitrite Labor Signs Protein Cervic Dilation Cervic Effacement Cervic Station 37 cm none Pressure neg Type Weight in lbs Pre/Post Dialysis Refused 189.767332684385 BP Diastolic BP Location Tested BP Systolic BP Type 80 120 Fetus Heart Rate Present A 140 Present Fetus Movement A Yes Comments Doing well, feels good FM, n o lof/vb. Occ ctrx. Reviewed labor precautions. Aware GBS neg. RTO 1 week. Flowsheet Date 07/24/2020 Ferrell Score Blood Edema Fundus Height Fundus Units Glucose Ketones Leukocytes Nitrite Labor Signs Protein Cervic Dilation Cervic Effacement Cervic Station 38 wks none [place] neg Type Weight in lbs Pre/Post Dialysis Refused Weight 197.493792673917 BP Diastolic BP Location Tested BP Systolic BP Type 74 118 Fetus Heart Rate Present A 145 Present Fetus Movement A Yes Comments Doing well, good FM, no lof/ vb. Reports had a run of contractions q8-10 minutes for approx 1.5 hours two nights ago. Reviewed labor precautions and gave after hours number to patient. Flowsheet Date 07/29/2020 Ferrell Score Blood Edema Fundus Height Fundus Units Glucose Ketones Leukocytes Nitrite Labor Signs Protein Cervic Dilation Cervic Effacement Cervic Station 39 wks none Cramping neg 1cm 50% - 3 Type Weight in lbs Pre/Post Dialysis Refused With clothes 190.585303466860 BP Diastolic BP Location Tested BP Systolic BP Type 82 120 sitting Fetus Heart Rate Present A 145 Present Fetus Movement A Yes Comments Doing well. Good FM, some cr amping for the past 3-4 days. She is interested in IOL if possible, will check IOL schedule and add on if possible, also discussed would need covid screening. Pt aware, given holidays may not be possible. Will schedule MD appt in 1 week with growth/YOUNG check and NST if undelivered and unable to schedule IOL. Flowsheet Date 08/04/2020 Ferrell Score Blood Edema Fundus Height Fundus Units Glucose Ketones Leukocytes Nitrite Labor Signs Protein Cervic Dilation Cervic Effacement Cervic Station Type Weight in lbs Pre/Post Dialysis Refused BP Diastolic BP Location Tested BP Systolic BP Type Fetus Heart Rate Present Fetus Movement Comments Flowsheet Date 08/04/2020 Ferrell Score Blood Edema Fundus Height Fundus Units Glucose Ketones Leukocytes Nitrite Labor Signs Protein Cervic Dilation Cervic Effacement Cervic Station none [place] neg Type Weight in lbs Pre/Post Dialysis Refused Weight 194.333023162176 BP Diastolic BP Location Tested BP Systolic BP Type 78 122 Fetus Heart Rate Present A Present Fetus Movement A Yes Comments Doing well, Reports good FM, no lof/vb. Reactive NST today. One contraction noted on monitor, patient felt tightening but comfortable. Growth US today EFW 4103g, 91%, YOUNG 18. IOL scheduled for Monday08/09/2020 at 22:00. Patient given number for L&D to call to schedule covid screening. Flowsheet Date 08/10/2020 Ferrell Score Blood Edema Fundus Height Fundus Units Glucose Ketones Leukocytes Nitrite Labor Signs Protein Cervic Dilation Cervic Effacement Cervic Station Type Weight in lbs Pre/Post Dialysis Refused BP Diastolic BP Location Tested BP Systolic BP Type Fetus Heart Rate Present Fetus Movement Comments Menstrual History Last Menstrual Date Menses Monthly On Bcp Conception Prior Menses Frequency Hcg Plus Date Menarche Onset Age 0209/15/2019 false Genetic Screening And Infection History Question Response Note Other Structural Defect false Cystic Fibrosis false Any Other Genetic History false Lisa Disease false Other Infection History false Thalassemia (Cambodian, Samoan, Mediterranean, Or Background): MCV < 80 true Pt is part [place] Patient Or Baby's Father Had A Child With Defects Not Listed Above false Live With Someone With TB Or Exposed To TB false Patient's Age Will Be 35 Yea rs Or Older At Estimated Date of Delivery false Recurrent Loss, Or A Stillbirth false Hemoglobinopathy Or Carrier false Patient Or Partner Has Histo ry Of Genital Herpes false Intellectual Disability/Autism true P atient's 2 maternal cousins have autism Maternal Metabolic Disorder (eg, Type 1 Diabetes, PKU) false Prior GBS-infected child false Marty-Sachs (eg, Tenriism, Cajun , Syrian-Syrian) false History Of STD, Gonorrhea, C hlamydia, HPV, Syphilis false History of HIV false History of Hepatitis false Neural Tube Defect (Meningom yelocele, Spina Bifida, Or Anencephaly) false Hemophilia Or Other Blood Disorders false [place]'s Chorea false If Yes, Was Person Tested For Fragile X? false Other Inherited Genetic Or C hromosomal Disorder false If Yes, Agent(s) And Strength/Dosage false Sickle Cell Disease Or Trait () false Congenital Heart Defect false Rash Or Viral Illness Since Last Menstrual Period false Muscular Dystrophy false Medications (including Suppl ements, Vitamins, Herbs, OTC Drugs), Illicit/Recreational Drugs, Alcohol true macrobid Recent Travel History Outside of Country false Down Syndrome false Delivery Information Delivery Date Delivery Type Labor Anesthesia Weeks Gestation Incision Type Labor Labor Length Hrs Delivered By Post Complications Tubal Sterilization Discharge Date Comments 1 Induce d [facility]-Ep idural 41.1 false Frieda Ricardo DO Discharge Information Feeding Method Contraceptive Method Maternal HG B and HCT Levels Breast 10.9 Ob Episode Information Episode Created Date Number of Fetuses Patient Bloodtype Patient rh Status Prepregnancy Weight lbs Domestic Partner Domestic Partner Phone Father Name Manager Of Housekeeping Status 03/07/20 24 1 O Positive CLOSED Fetus Data First Name Last Name Admitted to NICU Weight (g) Sex Living Outcome Pediatric Complications Fetus ID Race Codes Race Delivery Type [id number] Problems Problem Notes Problem Name Start Date End Date Resolution Snomed Code Not e Asthma [id number] Postoperative hypothyroidism 41707668 - s/p complet e thyroidectomy for papillary thyroid carcinoma (2019)- f/b endo- on levothyroxine (137mcg 5d/w, half tab 2d/w)- on 03/05/2024: TSH 2.734, free T4 1.29 Migraine [id number] Routine care 6340429 03 - dating by US on 03/07/2024 = 7w1- O+, rubella immune- cell free DNA wnl Carlo Calculation Initial Carlo Date Initial Exam Date Initial Exam Provider Initial Ultrasound Date Last Menstrual Period Date Ultra Sound Weeks Gestation 10/23/2024 03/07/2024 03/07/2024 01/07/2024 7 Eighteen To Twenty Week Carlo Update Ultra Sound Date Fundal Height At Umbil Quickening Date Ultra Sound Latest Weeks Gestation Final Carlo Confirmed By Final Carlo Confirmed Date Final Carlo Date Ultra Sound Latest Days Gestation 0 [email or web address] 03/07/2024 10/24/19 25 0 Pre-randolph Flowsheet Flowsheet Date 03/07/2024 Ferrell Score Blood Edema Fundus Height Fundus Units Glucose Ketones Leukocytes Nitrite Labor Signs Protein Cervic Dilation Cervic Effacement Cervic Station Type Weight in lbs Pre/Post Dialysis Refused With clothes 189.086070585327 BP Diastolic BP Location Tested BP Systolic BP Type 82 R arm 118 sitting Fetus Heart Rate Present Fetus Movement Comments Flowsheet Date 03/27/2024 Ferrell Score Blood Edema Fundus Height Fundus Units Glucose Ketones Leukocytes Nitrite Labor Signs Protein Cervic Dilation Cervic Effacement Cervic Station none none neg Type Weight in lbs Pre/Post Dialysis Refused With clothes 191.224301454777 BP Diastolic BP Location Tested BP Systolic BP Type 82 L arm 128 sitting Fetus Heart Rate Present A Present Fetus Movement A No Comments Pt doing well. No vb/crampin g. US today confirms + heart tones, CRL 10w3 c/w dating. Cell-free DNA collected today. Pt reports endo adjusted her levothyroxine from 6 to 6.5 tabs per week (each tab 137 mcg). Increased 3 days ago. Patient moving and transferring care. She completed medical release form. Will send info once have results of cfDNA. Menstrual History Last Menstrual Date Menses Monthly On Bcp Conception Prior Menses Frequency Hcg Plus Date Menarche Onset Age 0601/07/2024 false Genetic Screening And Infection History Question Response Note Congenital Heart Defect false Down Syndrome false Marty-Sachs (eg, Tenriism, Cajun , Syrian-Syrian) false If Yes, Was Person Tested For Fragile X? false Maternal Metabolic Disorder (eg, Type 1 Diabetes, PKU) false Recurrent Loss, Or A Stillbirth false Medications (including Suppl ements, Vitamins, Herbs, OTC Drugs), Illicit/Recreational Drugs, Alcohol true If Yes, Agent(s) And Strength/Dosage false Live With Someone With TB Or Exposed To TB false Patient Or Partner Has Histo ry Of Genital Herpes false Rash Or Viral Illness Since Last Menstrual Period false Prior GBS-infected child false History Of STD, Gonorrhea, C hlamydia, HPV, Syphilis false Neural Tube Defect (Meningom yelocele, Spina Bifida, Or Anencephaly) false Lisa Disease false Sickle Cell Disease Or Trait () false Hemophilia Or Other Blood Disorders false Muscular Dystrophy false Cystic Fibrosis false Mental Retardation/Autism false Other Structural Defect false History of HIV false History of Hepatitis false Other Infection History false Recent Travel History Outside of Country false Patient Or Baby's Father Had A Child With Defects Not Listed Above false Thalassemia (Cambodian, Samoan, Mediterranean, Or Background): MCV < 80 false Intellectual Disability/Autism true P ts. maternal side 2 cousins with autism Other Inherited Genetic Or C hromosomal Disorder false Hemoglobinopathy Or Carrier false [place]'s Chorea false Patient's Age Will Be 35 Yea rs Or Older At Estimated Date of Delivery false Any Other Genetic History false Delivery Information Delivery Date Delivery Type Labor Anesthesia Weeks Gestation Incision Type Labor Labor Length Hrs Delivered By Post Complications Tubal Sterilization Discharge Date Comments Discharge Information Feeding Method Contraceptive Method Maternal HG B and HCT Levels
--- NOTE | 2024-10-17 21:41 | PM.OBTRLD ---
OB - Triage/Final Diagnosis Visit Information Date of evaluation: 10/16/24 Reason for evaluation: threatened labor Comments/Additional reasons for admission: I have assessed the risk for this patient, Marisabel Whalen, and determined that she would benefit from observation care.
== END 2024-10-16 10:45 | disposition home or self-care (01) ==
PROVIDERS: Admitting Provider Obstetrics & Gynecology; Visit Provider Obstetrics & Gynecology
DX: O47.1 False labor at or after 37 completed weeks of gestation (principal); Z3A.39 39 weeks gestation of pregnancy
CPT/HCPCS: G0378; G0379

== ENCOUNTER 2024-10-18 10:23 | Outpatient (RCR) | payer BC, SELFPAY ==
[2024-10-18 11:24] VITALS: BP 114/67; PULSE 91
== END 2024-11-27 17:15 | disposition home or self-care (01) ==
LOC: ANHOBOP 10:23
PROVIDERS: Visit Provider Advanced Practice Midwife
DX: O26.899 Other specified pregnancy related conditions, unspecified trimester (principal)
CPT/HCPCS: 59025

== ENCOUNTER 2024-10-22 06:00 | Inpatient (IN) | payer BC, SELFPAY ==
[2024-10-22] VITALS (71 sets, daily range): BP systolic 87–157; BP diastolic 49–88; PULSE 25–157; RESP 16; TEMP 36.4–36.8; O2SAT 78–100; BMI 34.7
--- OUTSIDE RECORDS SUMMARY | 2024-10-22 06:06 | XMS_ITS | Data Portability ---
Author Organization [facility], ADMIN Address [address] [address] Assessment Encounter Date Assessment Date Assessment LastModified by Organization Details LastModified Time 06/15/2022 06/15/2022 Pt with random BRB a day after coitus every 2-3 months. pelvic ultrasound today is completely wnl- discussed results with pt. it could be that pt is having random breakthru bleeding on Lo Loestrin- will change to loestrin (dosing change) and see if that helps [email or web address] Not available 06/15/2022 15:33:59 Plan of Treatment Reminders Order Date Submit Date Provider Last Modified By Organization Details Last Modified Time Details Appointments None recorded. 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, [place], [address], 4 13:09:08 test, urine 2023 024 [facility], [address], [address], [place], [address], 4 13:17:17 hormone panel, serum or plasma 2023 024 [facility] [address] [facility], [place], [address], 4 06:09:59 Referral None recorded. Procedures None recorded. Surgeries None recorded. Imaging None recorded. Medication Orders Loestrin Fe 08/26 (28-Day) 1 mg-20 mcg (21)/75 mg (7) tablet 2021 022 [id number], [address] [facility] [place], [address], 3 16:43:00 Patient TargetsNo targets recorded. Patient Instructions Encounter Date Encounter Id Patient Instructions Last Modified By Organization Details Last Modified Time 03/17/[id number] You may find the following electronic resources helpful. Contraception: https://www.acog.or g/womens-health/faq s/-control Planning for : https://www.acog.or g/womens-health/faq s/voaw-bocmmr-lximk s-klqpiubrq-ybqxhbt [facility] Abnormal menstrual bleeding: https://www.acog.or g/womens-health/faq s/aigul-wrbzqdvtf-d leeding Mammography: https://www.acog.or g/womens-health/faq s/sjoiyfimtkg-mgg-h vxqw-rsiknfnhn-geyh r-uvr-ygedqv-proble ms#:~:text=For%20wo men%20at%20average% 20risk,at%20least%2 0age%2075%20years. Menopause and perimenopause: https://www.acog.or g/womens-health/faq s/oiz-flvgfenwo-yqw rs STD screening and prevention: https://www.acog.or g/womens-health/faq s/gyj-bp-skdjzpr-st is Not available 03/16/2023 14:18:03 - Patient [...] - Reviewed instructions for the patient portal itBit Not available 03/19/2023 21:36:34 12/04/2023 [id number] - discussed possible etiologies of abnormal periods. Given h/o complete thyroidectomy, will check TFTs along with other labs - info provided for RHINA as patient would like to achieve as well and may be difficult if can't maintain thyroid levels acceptable with h/o thyroid cancer. [employer] Not available 12/05/2023 13:33:51 03/07/2024 [id number] specimen collect ion & handling* [employer] Not available 03/07/2024 17:06:51 - Patient is [...] - Hospital and practice style discussed with [employer] system. Patient aware only deliver out of [facility]. - New information given. - Discussed the use of the patient portal for communication during and beyond. - Discussed Covid and current office and hospital protocols. - Pt moving to [facility] at the end of March. Will make [...] usal 7.7 - 58.5 Not Available [facility] ([facility]) [address] [place], [address], 12/05/2023 06:09:58 12/04/19 24 12/05/2023 T4+TS H+LH+ FSH+P ROLAC TIN FSH 8.3 mIU/m L Adult Femal e Range Folli cular phase 3.5 - 12.5 Ovula tion phase 4.7 - 21.5 Lutea l phase 1.7 - 7.7 Postm enopa usal 25.8 - 134.8 Not Available [facility] ([facility]) [address] [place], [address], 12/05/2023 06:09:58 12/04/19 24 12/05/2023 T4+TS H+LH+ FSH+P ROLAC TIN prolactin 10.3 NG/mL 4.8-33 .4 Not Available [facility] ([facility]) [address] [place], [address], 12/05/2023 06:09:58 12/04/19 24 12/05/2023 T4+TS H+LH+ FSH+P ROLAC TIN TSH 0.044 uIU/m L 0.450- 4.500 below low normal Not Available [facility] ([facility]) [address] [facility], [place], [address], 12/05/2023 06:09:58 12/04/19 24 12/05/2023 T4+TS H+LH+ FSH+P ROLAC TIN thyroxine (T4) 13.0 ug/dL 4.5-12 .0 above high normal Not Available [facility] ([facility]) [address] [place], [address], 12/05/2023 06:09:58 12/04/19 24 12/04/2023 pregn maye test, urine result neg neg Not Available [address] [place] [address], [address], 12/04/2023 10:08:57 12/04/19 24 12/04/2023 pregn maye test, urine internal control checked neg neg Not Available [address] [place] [address], [address], 12/04/2023 10:08:57 03/07/20 24 03/08/2024 CBC/D /PLT+ RPR+R H+ABO +MONET GG... HBsAg screen NEGATI VE negati ve Not Available [facility] ([facility]) [address] [place], [address], 03/09/2024 17:07:18 03/07/20 24 03/08/2024 CBC/D /PLT+ RPR+R H+ABO +MONET GG... HCV Ab NON REACTI VE non reacti ve Not Available [facility] ([facility]) [address] [facility], [place], [address], 03/09/2024 17:07:18 03/07/20 24 03/08/2024 CBC/D /PLT+ RPR+R H+ABO +MONET GG... interpretati on: COMMEN T Not infec porter with HCV unles s early or acute infec tion is suspe cted (whic h may be delay ed in an immun ocomp romis ed indiv idual ), or other evide nce exist s to indic ate HCV infec tion. Not Available [facility] ([facility]) [address] [facility], [place], [address], 03/09/2024 17:07:18 03/07/20 24 03/08/2024 CBC/D /PLT+ RPR+R H+ABO +MONET GG... RPR NON REACTI VE non reacti ve Not Available [facility] ([facility]) [address] [facility], [place], [address], 03/09/2024 17:07:18 03/07/20 24 03/08/2024 CBC/D /PLT+ RPR+R H+ABO +MONET GG... rubella antibodies, IgG 1.59 index immune >0.99 Non-i mmune <0.90 Equiv ocal 0.90 - 0.99 Immun e >0.99 Not Available [facility] ([facility]) [address] [facility], [place], [address], 03/09/2024 17:07:18 03/07/20 24 03/08/2024 CBC/D /PLT+ RPR+R H+ABO +MONET GG... ABO grouping O Not Available [facility] ([facility]) [address] [facility], [place], [address], 03/09/2024 17:07:18 03/07/20 24 03/08/2024 CBC/D /PLT+ RPR+R H+ABO +MONET GG... Rh factor POSITI VE Pleas e note: Prior recor ds for this patie nt's ABO / Rh type are not avail able for addit ional verif icati on. Not Available [facility] ([facility]) [address] [place], [address], 03/09/2024 17:07:18 03/07/20 24 03/08/2024 CBC/D /PLT+ RPR+R H+ABO +MONET GG... antibody screen NEGATI VE negati ve Not Available [facility] ([facility]) [address] [place], [address], 03/09/2024 17:07:18 03/07/20 24 03/08/2024 CBC/D /PLT+ RPR+R H+ABO +MONET GG... HIV Ab/P24 Ag screen NON REACTI VE non reacti ve HIV-1 /HIV- 2 antib odies and HIV-1 p24 antig en were NOT detec porter. There is no labor atory evide nce of HIV infec tion. HIV Negat gianluca Not Available [facility] ([facility]) [address] [place], [address], 03/09/2024 17:07:18 03/07/20 24 03/08/2024 CBC/D /PLT+ RPR+R H+ABO +MONET GG... WBC 7.3 x10e3 /uL 3.4-10 .8 normal Not Available [facility] ([facility]) [address] [place], [address], 03/09/2024 17:07:18 03/07/20 24 03/08/2024 CBC/D /PLT+ RPR+R H+ABO +MONET GG... RBC 4.39 x10e6 /uL 3.77-5 .28 normal Not Available [facility] ([facility]) [address] [place], [address], 03/09/2024 17:07:18 03/07/20 24 03/08/2024 CBC/D /PLT+ RPR+R H+ABO +MONET GG... hemoglobin 14.2 g/dL 11.1-1 5.9 normal Not Available [facility] ([facility]) [address] [facility], [place], [address], 03/09/2024 17:07:18 03/07/20 24 03/08/2024 CBC/D /PLT+ RPR+R H+ABO +MONET GG... hematocrit 41.9 % 34.0-4 6.6 normal Not Available [facility] ([facility]) [address] [facility], [place], [address], 03/09/2024 17:07:18 03/07/20 24 03/08/2024 CBC/D /PLT+ RPR+R H+ABO +MONET GG... MCV 95 fL 79-97 normal Not Available [facility] ([facility]) [address] [place], [address], 03/09/2024 17:07:18 03/07/20 24 03/08/2024 CBC/D /PLT+ RPR+R H+ABO +MONET GG... MCH 32.3 pg 26.6-3 3.0 normal Not Available [facility] ([facility]) [address] [place], [address], 03/09/2024 17:07:18 03/07/20 24 03/08/2024 CBC/D /PLT+ RPR+R H+ABO +MONET GG... MCHC 33.9 g/dL 31.5-3 5.7 normal Not Available [facility] ([facility]) [address] [place], [address], 03/09/2024 17:07:18 03/07/20 24 03/08/2024 CBC/D /PLT+ RPR+R H+ABO +MONET GG... RDW 11.8 % 11.7-1 5.4 Not Available [facility] ([facility]) [address] [facility], [place], [address], 03/09/2024 17:07:18 03/07/20 24 03/08/2024 CBC/D /PLT+ RPR+R H+ABO +MONET GG... platelets 343 x10e3 /uL 150-45 0 normal Not Available [facility] ([facility]) [address] [facility], [place], [address], 03/09/2024 17:07:18 03/07/20 24 03/08/2024 CBC/D /PLT+ RPR+R H+ABO +MONET GG... neutrophils 72 % not estab. normal Not Available [facility] ([facility]) [address] [facility], [place], [address], 03/09/2024 17:07:18 03/07/20 24 03/08/2024 CBC/D /PLT+ RPR+R H+ABO +MONET GG... lymphs 19 % not estab. normal Not Available [facility] ([facility]) [address] [facility], [place], [address], 03/09/2024 17:07:18 03/07/20 24 03/08/2024 CBC/D /PLT+ RPR+R H+ABO +MONET GG... monocytes 7 % not estab. normal Not Available [facility] ([facility]) [address] [facility], [place], [address], 03/09/2024 17:07:18 03/07/20 24 03/08/2024 CBC/D /PLT+ RPR+R H+ABO +MONET GG... eos 2 % not estab. normal Not Available [facility] ([facility]) [address] [facility], [place], [address], 03/09/2024 17:07:18 03/07/20 24 03/08/2024 CBC/D /PLT+ RPR+R H+ABO +MONET GG... basos 0 % not estab. normal Not Available [facility] ([facility]) [address] [facility], [place], [address], 03/09/2024 17:07:18 03/07/20 24 03/08/2024 CBC/D /PLT+ RPR+R H+ABO +MONET GG... immature cells GROUND HOST/HOSTESS Not Available [facility] ([facility]) [address] [facility], [place], [address], 03/09/2024 17:07:18 03/07/20 24 03/08/2024 CBC/D /PLT+ RPR+R H+ABO +MONET GG... neutrophils (absolute) 5.2 x10e3 /uL 1.4-7. 0 normal Not Available [facility] ([facility]) [address] [facility], [place], [address], 03/09/2024 17:07:18 03/07/20 24 03/08/2024 CBC/D /PLT+ RPR+R H+ABO +MONET GG... lymphs (absolute) 1.4 x10e3 /uL 0.7-3. 1 normal Not Available [facility] ([facility]) [address] [facility], [place], [address], 03/09/2024 17:07:18 03/07/20 24 03/08/2024 CBC/D /PLT+ RPR+R H+ABO +MONET GG... monocytes(ab solute) 0.5 x10e3 /uL 0.1-0. 9 normal Not Available [facility] ([facility]) [address] [place], [address], 03/09/2024 17:07:18 03/07/20 24 03/08/2024 CBC/D /PLT+ RPR+R H+ABO +MONET GG... eos (absolute) 0.2 x10e3 /uL 0.0-0. 4 normal Not Available [facility] ([facility]) [address] [facility], [place], [address], 03/09/2024 17:07:18 03/07/20 24 03/08/2024 CBC/D /PLT+ RPR+R H+ABO +MONET GG... baso (absolute) 0.0 x10e3 /uL 0.0-0. 2 normal Not Available [facility] ([facility]) [address] [facility], [place], [address], 03/09/2024 17:07:18 03/07/20 24 03/08/2024 CBC/D /PLT+ RPR+R H+ABO +MONET GG... immature granulocytes 0 % not estab. Not Available [facility] ([facility]) [address] [facility], [place], [address], 03/09/2024 17:07:18 03/07/20 24 03/08/2024 CBC/D /PLT+ RPR+R H+ABO +MONET GG... immature grans (abs) 0.0 x10e3 /uL 0.0-0. 1 Not Available [facility] ([facility]) [address] [facility], [place], [address], 03/09/2024 17:07:18 03/07/20 24 03/08/2024 CBC/D /PLT+ RPR+R H+ABO +MONET GG... NRBC GROUND HOST/HOSTESS Not Available [facility] ([facility]) [address] [place], [address], 03/09/2024 17:07:18 03/07/20 24 03/08/2024 CBC/D /PLT+ RPR+R H+ABO +MONET GG... hematology comments: GROUND HOST/HOSTESS Not Available [facility] ([facility]) [address] [place], [address], 03/09/2024 17:07:18 03/07/20 24 03/08/2024 CBC/D /PLT+ RPR+R H+ABO +MONET GG... specific gravity 1.015 1.005- 1.030 normal Not Available [facility] ([facility]) [address] [facility], [place], [address], 03/09/2024 17:07:18 03/07/20 24 03/08/2024 CBC/D /PLT+ RPR+R H+ABO +MONET GG... pH 6.0 5.0-7. 5 normal Not Available [facility] ([facility]) [address] [facility], [place], [address], 03/09/2024 17:07:18 03/07/20 24 03/08/2024 CBC/D /PLT+ RPR+R H+ABO +MONET GG... urine-color YELLOW yellow Not Available [facility] ([facility]) [address] [facility], [place], [address], 03/09/2024 17:07:18 03/07/20 24 03/08/2024 CBC/D /PLT+ RPR+R H+ABO +MONET GG... appearance CLEAR clear Not Available [facility] ([facility]) [address] [facility], [place], [address], 03/09/2024 17:07:18 03/07/20 24 03/08/2024 CBC/D /PLT+ RPR+R H+ABO +MONET GG... WBC esterase NEGATI VE negati ve Not Available [facility] ([facility]) [address] [facility], [place], [address], 03/09/2024 17:07:18 03/07/20 24 03/08/2024 CBC/D /PLT+ RPR+R H+ABO +MONET GG... protein NEGATI VE negati ve/tra ce Not Available [facility] ([facility]) [address] [facility], [place], [address], 03/09/2024 17:07:18 03/07/20 24 03/08/2024 CBC/D /PLT+ RPR+R H+ABO +MONET GG... glucose NEGATI VE negati ve Not Available [facility] ([facility]) [address] [facility], [place], [address], 03/09/2024 17:07:18 03/07/20 24 03/08/2024 CBC/D /PLT+ RPR+R H+ABO +MONET GG... ketones NEGATI VE negati ve Not Available [facility] ([facility]) [address] [facility], [place], [address], 03/09/2024 17:07:18 03/07/20 24 03/08/2024 CBC/D /PLT+ RPR+R H+ABO +MONET GG... occult blood NEGATI VE negati ve Not Available [facility] ([facility]) [address] [facility], [place], [address], 03/09/2024 17:07:18 03/07/20 24 03/08/2024 CBC/D /PLT+ RPR+R H+ABO +MONET GG... bilirubin NEGATI VE negati ve Not Available [facility] ([facility]) [address] [place], [address], 03/09/2024 17:07:18 03/07/20 24 03/08/2024 CBC/D /PLT+ RPR+R H+ABO +MONET GG... urobilinogen ,semi-qn 0.2 mg/dL 0.2-1. 0 normal Not Available [facility] ([facility]) [address] [place], [address], 03/09/2024 17:07:18 03/07/20 24 03/08/2024 CBC/D /PLT+ RPR+R H+ABO +MONET GG... nitrite, urine NEGATI VE negati ve Not Available [facility] ([facility]) [address] [facility], [place], [address], 03/09/2024 17:07:18 03/07/20 24 03/08/2024 CBC/D /PLT+ RPR+R H+ABO +MONET GG... microscopic examination COMMEN T Micro scopi c follo ws if indic ated. Not Available [facility] ([facility]) [address] [facility], [place], [address], 03/09/2024 17:07:18 03/07/20 24 03/08/2024 CBC/D /PLT+ RPR+R H+ABO +MONET GG... microscopic examination SEE BELOW: Micro scopi c was indic ated and was perfo rmed. Not Available [facility] ([facility]) [address] [facility], [place], [address], 03/09/2024 17:07:18 03/07/20 24 03/08/2024 CBC/D /PLT+ RPR+R H+ABO +MONET GG... WBC NONE SEEN /hpf 0 - 5 Not Available [facility] ([facility]) [address] [place], [address], 03/09/2024 17:07:18 03/07/20 24 03/08/2024 CBC/D /PLT+ RPR+R H+ABO +MONET GG... RBC NONE SEEN /hpf 0 - 2 Not Available [facility] ([facility]) [address] [place], [address], 03/09/2024 17:07:18 03/07/20 24 03/08/2024 CBC/D /PLT+ RPR+R H+ABO +MONET GG... epithelial cells (non renal) 0-10 /hpf 0 - 10 Not Available [facility] ([facility]) [address] [facility] [place], [address], 03/09/2024 17:07:18 03/07/20 24 03/08/2024 CBC/D /PLT+ RPR+R H+ABO +MONET GG... epithelial cells (renal) GROUND HOST/HOSTESS Not Available [facility] ([facility]) [address] [facility], [place], [address], 03/09/2024 17:07:18 03/07/20 24 03/08/2024 CBC/D /PLT+ RPR+R H+ABO +MONET GG... casts NONE SEEN /lpf none seen Not Available [facility] ([facility]) [address] [facility], [place], [address], 03/09/2024 17:07:18 03/07/20 24 03/08/2024 CBC/D /PLT+ RPR+R H+ABO +MONET GG... cast type GROUND HOST/HOSTESS Not Available [facility] ([facility]) [address] [facility], [place], [address], 03/09/2024 17:07:18 03/07/20 24 03/08/2024 CBC/D /PLT+ RPR+R H+ABO +MONET GG... crystals GROUND HOST/HOSTESS Not Available [facility] ([facility]) [address] [facility], [place], [address], 03/09/2024 17:07:18 03/07/20 24 03/08/2024 CBC/D /PLT+ RPR+R H+ABO +MONET GG... crystal type GROUND HOST/HOSTESS Not Available [facility] ([facility]) [address] [facility], [place], [address], 03/09/2024 17:07:18 03/07/20 24 03/08/2024 CBC/D /PLT+ RPR+R H+ABO +MONET GG... mucus threads GROUND HOST/HOSTESS Not Available [facility] ([facility]) [address] [facility], [place], [address], 03/09/2024 17:07:18 03/07/20 24 03/08/2024 CBC/D /PLT+ RPR+R H+ABO +MONET GG... bacteria NONE SEEN none seen/f ew Not Available [facility] ([facility]) [address] [facility], [place], [address], 03/09/2024 17:07:18 03/07/20 24 03/08/2024 CBC/D /PLT+ RPR+R H+ABO +MONET GG... yeast GROUND HOST/HOSTESS Not Available [facility] ([facility]) [address] [facility], [place], [address], 03/09/2024 17:07:18 03/07/20 24 03/08/2024 CBC/D /PLT+ RPR+R H+ABO +MONET GG... trichomonas GROUND HOST/HOSTESS Not Available [facility] ([facility]) [address] [facility], [place], [address], 03/09/2024 17:07:18 03/07/20 24 03/08/2024 CBC/D /PLT+ RPR+R H+ABO +MONET GG... comment GROUND HOST/HOSTESS Not Available [facility] ([facility]) [address] [facility], [place], [address], 03/09/2024 17:07:18 03/07/20 24 03/09/2024 CBC/D /PLT+ RPR+R H+ABO +MONET GG... urine culture,pren atal, w/gbs FINAL REPORT Not Available [facility] ([facility]) [address] [facility], [place], [address], 03/09/2024 17:07:18 03/07/20 24 03/09/2024 CBC/D /PLT+ RPR+R H+ABO +MONET GG... result 1 COMMEN T Mixed uroge nital sakina 50,00 0-100 ,000 colon y formi ng units per mL Not Available [facility] ([facility]) [address] [place], [address], 03/09/2024 17:07:18 03/07/20 24 03/08/2024 HEMOG LOBIN A1C hemoglobin A1C 4.6 % 4.8-5. 6 below low normal Predi abete s: 5.7 - 6.4 Diabe lyndsey: >6.4 Glyce heather contr ol for adult s with diabe lyndsey: <7.0 Not Available [facility] ([facility]) [address] [place], [address], 03/09/2024 17:07:19 03/07/20 24 03/09/2024 IGP, CTNG, RFX APTIM A HPV ASCU chlamydia, nuc. acid amp NEGATI VE negati ve Not Available [facility] ([facility]) [address] [place], [address], 03/13/2024 13:09:08 03/07/20 24 03/09/2024 IGP, CTNG, RFX APTIM A HPV ASCU gonococcus, nuc. acid amp NEGATI VE negati ve Not Available [facility] ([facility]) [address] [place], [address], 03/13/2024 13:09:08 03/07/20 24 03/13/2024 IGP, CTNG, RFX APTIM A HPV ASCU diagnosis: COMMEN T NEGAT GIANLUCA FOR INTRA EPITH ELIAL LESIO N OR SB DELGADO . THIS SPECI MEN WAS RESCR EENED PART OF OUR QUALI TY CONTR OL PROGR AM. Not Available [facility] ([facility]) [address] [place], [address], 03/13/2024 13:09:08 03/07/20 24 03/13/2024 IGP, CTNG, RFX APTIM A HPV ASCU specimen adequacy: COMMEN T Satis facto ry for evalu ation . No endoc ervic al compo nent is ident ified . Not Available [facility] ([facility]) [address] [place], [address], 03/13/2024 13:09:08 03/07/20 24 03/13/2024 IGP, CTNG, RFX APTIM A HPV ASCU clinician provided ICD10: LINDA Brunner Z12.4 Not Available [facility] ([facility]) [address] [place], [address], 03/13/2024 13:09:08 03/07/20 24 03/13/2024 IGP, CTNG, RFX APTIM A HPV ASCU performed by: LINDA [email or web address], Cytot echno logis t (ASCP ) Not Available [facility] ([facility]) [address] [place], [address], 03/13/2024 13:09:08 03/07/20 24 03/13/2024 IGP, CTNG, RFX APTIM A HPV ASCU QC reviewed by: LINDA mcdermott, Super visor y Cytot echno logis t (ASCP ) Not Available [facility] ([facility]) [address] [place], [address], 03/13/2024 13:09:08 03/07/20 24 03/13/2024 IGP, CTNG, RFX APTIM A HPV ASCU . . Not Available [facility] ([facility]) [address] [place], [address], 03/13/2024 13:09:08 03/07/20 24 03/13/2024 IGP, CTNG, [...] ts do occur . Not Available [facility] ([facility]) [address] [facility] [place], [address], 03/13/2024 13:09:08 03/07/20 24 03/13/2024 IGP, CTNG, RFX APTIM A HPV ASCU test methodology: COMMEN T This liqui d based ThinP rep(R ) pap test was thania wood with the use of an image guide mario richardson. Not Available [facility] ([facility]) [address] [facility], [place], [address], 03/13/2024 13:09:08 03/07/20 24 03/13/2024 IGP, CTNG, RFX APTIM A HPV ASCU . COMMEN T The HPV DNA refle x crite jani were not met with this speci men resul t there fore, no HPV testi ng was perfo rmed. Not Available [facility] ([facility]) [address] [facility], [place], [address], 03/13/2024 13:09:08 03/27/20 24 04/04/2024 MATER NIT21 PLUS CORE+ SCA gestation Single ton Not Available [facility] ([facility]) [address] [place], [address], 04/04/2024 04:08:53 03/27/20 24 04/04/2024 MATER NIT21 PLUS CORE+ SCA fraction 7% Not Available [facility] ([facility]) [address] [place], [address], 04/04/2024 04:08:53 03/27/20 24 04/04/2024 MATER NIT21 PLUS CORE+ SCA gestational age > or = 9W: Yes Not Available [facility] ([facility]) [address] [place], [address], 04/04/2024 04:08:53 03/27/20 24 04/04/2024 MATER NIT21 PLUS CORE+ SCA test result Negati ve Not Available [facility] ([facility]) [address] [facility], [place], [address], 04/04/2024 04:08:53 03/27/20 24 04/04/2024 MATER NIT21 PLUS CORE+ SCA label drier comments Linda Arreola speci men showe d an expec porter repre senta tion of chrom osome 21, 18 and 13 mater ial. Clini scarlet corre latio n is sugge sted. Not Available [facility] ([facility]) [address] [facility], [place], [address], 04/04/2024 04:08:53 03/27/20 24 04/04/2024 MATER NIT21 PLUS CORE+ SCA approved by Linda rod MD, PhD, [facility] tor, [place] Labor atori es Not Available [facility] ([facility]) [address] [facility], [place], [address], 04/04/2024 04:08:53 03/27/20 24 04/04/2024 MATER NIT21 PLUS CORE+ SCA trisomy 21 (down syndrome) Negati ve Not Available [facility] ([facility]) [address] [place], [address], 04/04/2024 04:08:53 03/27/20 24 04/04/2024 MATER NIT21 PLUS CORE+ SCA trisomy 18 (osman syndrome) Negati ve Not Available [facility] ([facility]) [address] [place], [address], 04/04/2024 04:08:53 03/27/20 24 04/04/2024 MATER NIT21 PLUS CORE+ 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 Not Available [facility] ([facility]) [address] [place], [address], 04/04/2024 04:08:53 03/27/20 24 04/04/2024 MATER NIT21 PLUS CORE+ SCA sex Commen t Consi stent with Male Not Available [facility] (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) [address] [place], [address], 04/04/2024 04:08:53 03/27/20 24 04/04/2024 MATER NIT21 PLUS CORE+ SCA negative predictive value Note The Negat gianluca Predi ctive Value (NPV) for triso my 21, 18, and 13 is great er than 99%. The NPV for SCA and ESS canno t be calcu lated as SCA and ESS are only repor porter when an abnor malit y is detec porter. Not Available [facility] ([facility]) [address] [place], [address], 04/04/2024 04:08:53 03/27/20 24 04/04/2024 MATER NIT21 PLUS CORE+ SCA positive predictive value N/A Not Available [facility] ([facility]) [address] [facility], [place], [address], 04/04/2024 04:08:53 03/27/20 24 04/04/2024 MATER NIT21 [...] yet been valid ated. Not Available [facility] ([facility]) [address] [facility], [place], [address], 04/04/2024 04:08:53 03/27/20 24 04/04/2024 MATER NIT21 PLUS CORE+ SCA test method Commen t See Notes Circu latin g cell- free DNA was purif ied from the plasm a compo nent of mater nal blood . The extra cted DNA was then conve rted into a [employer] davy ry for aneup loidy lyssa [...] s 16 and 22. Not Available [facility] ([facility]) [address] [facility], [place], [address], 04/04/2024 04:08:53 03/27/20 24 04/04/2024 MATER NIT21 PLUS CORE+ SCA performance Commen t The perfo rmanc e forest cteri stics of the Mater niT(R ) 21 PLUS labor atory -deve loped test (LDT) have been deter mined in a clini scarlet valid ation study with pregn ant women at incre ased risk for chrom osoma l aneup loidy .[1-4 ] Not Available [facility] ([facility]) [address] [facility], [place], [address], 04/04/2024 04:08:53 03/27/20 24 04/04/2024 MATER NIT21 [...] ase nstd3 7 [http s://w ww.nc bi.nl .[facility] .gov/ dbvar /stud ies/n std37 / ] [...] eton gesta tion only. Not Available [facility] ([facility]) [address] [facility], [place], [address], 04/04/2024 04:08:53 03/27/20 24 04/04/2024 MATER NIT21 [...] ne(R) and Fragm in(R) ). Not Available [employer] ([facility]) [address], [place], [address], 04/04/2024 04:08:53 03/27/20 24 04/04/2024 MATER NIT21 PLUS CORE+ SCA note Commen t See Notes [employer] is a subsi diary of Labor atory Corpo ratio n of [employer]i [employer], using the brand [employer]. This test was devel oped and its perfo rmanc e forest cteri stics deter mined by [facility]. [...] men will be avail able until term. [facility] sampl es will not be retai israel beyon d 60 days. [facility] patie nts will have to send a new sampl e for re-se quenc ing ([facility] Test Code: 57322 4). Not Available [facility] ([facility]) [address] [facility], [place], [address], 04/04/2024 04:08:53 03/27/20 24 04/04/2024 MATER NIT21 [...] No. 226, May 2020. Not Available [facility] ([facility]) [address] [facility], [place], [address], 04/04/2024 04:08:53 03/27/20 24 04/04/2024 MATER NIT21 PLUS CORE+ SCA pdf . Not Available [facility] ([facility]) [address] [facility], [place], [address], 04/04/2024 04:08:53 06/15/20 22 06/15/2022 US, trans vagin al No observ ation record ed. [address] [address], [place], [address], 03/19/2023 21:32:40 03/07/2003/07/2024 US, obste tric, 1st trime ster No observ ation record ed. [address] [address], [place], [address], 03/30/2024 13:01:18 03/27/20 24 03/27/2024 US, obste tric, 1st trime ster No observ ation record ed. [address], [place], [address], 03/29/2024 15:42:02 Result Notes None recorded. Problems Name Problem SNOMED Code Status Onset Date Resolution Date Notes Provider Name and Address Organization Details Recorded Time Rubella non-immu ne [id number] Completed needs MMR postpartu m Jaimee Hernandez MD [address], [place], [place], [address], [facility] 17:57:46 Disorder of thyroid gland 53851322 Completed Thyroid mass: seen by endo, FNA [...] to start meds. Jaimee Hernandez MD [address], [place], [place], [address], [facility] 17:57:46 Routine antenata l care Completed O+, rubella NON-immun e, declined genetic screening , AFP neg, [x] s/p flu shot on 04/16/2020 [x] s/p tdap on 05/07 [x ] GBS done on 07/09/2020 neg Jaimee Hernandez MD [address], [place], [place], [address], [facility] 17:57:46 Asthma [id number] Completed Jaimee Hernandez MD [address], [place], [place], [address], [facility] 17:57:46 Anemia 545019664 Completed Hgb 9.6 at 27w3 on 05/07/2020 . start Fe/colace Jaimee Hernandez MD [address], [place], [place], [address], [facility] 17:57:46 Mass of thyroid gland 977318005 Active 2019 Thyroid mass: seen by endo, [...] T3 135 (wnl). Jaimee Hernandez MD [address], [place], [place], [address], [facility] 16:43:46 Pregnanc y 81996330 Completed 201908/18/2020 Jaimee Hernandez MD [address], [place], [place], [address], [facility] 4 16:57:30 Pregnanc y [id number] Completed 202304/05/2024 Jaimee Hernandez MD [address], [place], [address], [facility] 4 16:57:30 Routine antenata l care Completed - dating by US on 03/07/2024 = 7w1 - O+, rubella immune - cell free DNA wnl Jaimee Hernandez MD [address], [place], [place], [address], [facility] 4 17:59:08 Postoper ative hypothyr oidism 13288201 Completed - s/p complete thyroidec meena for papillary thyroid carcinoma (2019) - f/b endo - on levothyro xine (137mcg 5d/w, half tab 2d/w) - on 03/05/2024 : TSH 2.734, free T4 1.29 Jaimee Hernandez MD [address], [place], [place], [address], [facility] 4 18:09:13 Asthma [id number] Completed Jaimee Hernandez MD [address], [place], [place], [address], [facility] 4 18:09:17 Migraine [id number] Completed Jaimee Hernandez MD [address], [place], [place], [address], [facility] 4 18:09:25 Problem Notes None recorded. Procedures Surgical History Date Name Laterality Status Provider Name and Address Organization Details Recorded Time 03/27/20 24 MW USG First Trimester completed DEBBY CURRAN [facility] 03/27/2024 15:20:26 03/07/20 24 U/S OB FIRST TRIMESTER ([facility]) completed KAN GALLEGOS [facility] 03/07/2024 15:30:51 03/07/20 24 Date of Last Pap Smear completed Jaimee Hernandez MD [address], [place], [address], [place] [facility] [place] [facility] 03/13/2024 16:41:05 06/15/20 22 MW USG GYNE [place] DEBBY CURRAN [place] [facility] 06/15/2022 15:21:40 05/04/20 21 thyroidectomy completed Jaimee Hernandez MD [address], [place], [address], [place] [facility] 10/24/2021 21:00:53 08/13/19 21 Vaginal Delivery completed Jaimee Hernandez MD [address], [place], [address], [place] [facility] 08/18/2020 17:59:41 08/04/20 20 MW USG Third Trimester completed DEBBY CURRAN [place] [facility] 08/04/2020 11:28:02 08/04/20 20 Non-Stress Test [facility] completed Jaimee Hernandez MD [address], [place], [address], [place] [facility] 08/01/2020 21:36:31 07/09/20 20 MW USG Third Trimester [place] DE[place] CURRAN [place] [facility] 07/09/2020 10:26:51 extraction of wisdom tooth completed Jaimee Hernandez MD [address], [place], [address], [place] [facility] 04/25/2020 10:49:10 Imaging Results Imaging Date Name Status LastModified by Organization Details LastModified Time 06/15/2022 US, transvaginal completed [address], [place], [address], 03/19/2023 21:32:40 03/07/2024 US, obstetric, 1st trimester completed [address], [place], [address], 03/30/2024 13:01:18 03/27/2024 US, obstetric, 1st trimester completed [address], [place], [address], 03/29/2024 15:42:02 Procedure Notes None recorded. Medical Equipment None Reported. Allergies Allergen ID Allergen Name Allergen Category Reaction Reaction Severity Criticality Documentation Date Start Date Code Code System Note Provider Name and Address Organization Details Recorded Time 776 tree and shrub pollen environme nt,medica tion Not available Not available Not available 04/25/2020 07001 UNK Jaimee Hernandez MD [address], [place], [address], [facility] 0 10:49:38 Medications [...] Updated DateTime 12/04/2023 167.64 cm 30.8 kg/m2 38262.14 g 118 mm[Hg] 82 mm[Hg] KIMBERLEY CABEZAS [facility] 4 10:00:23 Date Recorded Body height Body mass index (BMI) Body weight Systolic blood pressure Diastolic blood pressure Provider Name and Address Organization Details Last Updated DateTime 03/07/2024 167.64 cm 30.5 kg/m2 22099.96 g 118 mm[Hg] 82 mm[Hg] KIMBERLEY CABEZAS [facility] 4 15:38:56 Date Recorded Body weight Systolic blood pressure Diastolic blood pressure Provider Name and Address Organization Details Last Updated DateTime 03/27/2024 54337.1426 7 g 128 mm[Hg] 82 mm[Hg] Tonie Meraz [facility] 03/27/2024 15:53:51 Date Recorded Body height Body mass index (BMI) Body weight Systolic blood pressure Diastolic blood pressure Provider Name and Address Organization Details Last Updated DateTime 06/15/2022 167.64 cm 28.4 kg/m2 49123.26 g 120 mm[Hg] 74 mm[Hg] Melissa Vizcaino [facility] 2 15:21:10 Date Recorded Body height Body mass index (BMI) Body weight Systolic blood pressure Diastolic blood pressure Provider Name and Address Organization Details Last Updated DateTime 03/17/2023 167.64 cm 30.8 kg/m2 50313.14 g 122 mm[Hg] 80 mm[Hg] May Htun (TERMED) [facility] 3 16:41:36 Social History Question Answer Notes LastModified by Organizat ion Details LastModified Time Tobacco Smoking [place] [address] [place] [address] [address], [place], [address], [facility] 04/25/2020 10:47:25 Do You [...] or colon cancer Medical History Condition Response Neurology- Headaches/Migraines Y Pulmonary- Asthma Y Endocrinology- Hypothyroidism Y Cancer-Other Y Gynecological History Statement/Question Response [...] Details Recorded Time MMR 08/11/2020 [facility] 09/24/2020 11:11:54 COVID-19, mRNA, LNP-S, PF, 30 mcg/0.3 mL dose 12/22/2020 completed Melissa Vizcaino [facility] 03/11/2022 09:57:32 COVID-19, mRNA, LNP-S, PF, 30 mcg/0.3 mL dose 01/12/2021 completed Melissa Vizcaino [facility] 03/11/2022 09:57:32 Tdap 05/07/2020 [facility] 05/07/2020 10:22:34 Past Encounters Encounter ID Performer Location Encounter Start Date Encounter Closed Date Diagnosis/Indication Diagnosis SNOMED-CT Code Diagnosis ICD10 Code Diagnosis Note [id number] Jaimee Hernandez MD [facility] [address] [facility] [place] [address] 05/07/2020 09:36:13 05/07/2020 10:18:45 screening 733564771 Z36.89 Gestation period, 27 weeks 15346230 Z3A.27 Depression screening 171 884217 Z13.32 Administra tion of diphtheria, pertussis, and tetanus vaccine 391070952 Z23 Mass of thyroid gland 23 7727854 E04.9 [id number] Jaimee Hernandez MD [facility] [address] [facility],[address] [place] [address] 05/28/2020 09:31:35 05/28/2020 11:13:47 Routine care 995299423 Z34.03 [id number] Jaimee Hernandez MD [facility] [address] [place] [address] 06/11/2020 10:04:11 06/11/2020 10:33:17 Gestation period, 32 weeks 5201405 Z3A.32 Routine an tenatal care 930773064 Z34.03 [id number] Jaimee Hernandez MD [facility] [address] [place] [address] 06/25/2020 09:48:59 06/25/2020 11:16:40 Gestation period, 34 weeks 95693109 Z3A.34 Routine an tenatal care 410484628 Z34.03 [id number] Jaimee Hernandez MD [facility] [address] [place] [address] 07/09/2020 09:55:16 07/09/2020 11:05:53 Routine care 573097667 Z34.03 Gestation period, 36 weeks 61836501 Z3A.36 screening 2437 00993 Z36.85 [id number] DEBBY CURRAN [facility] [address] [place] [address] 07/09/2020 09:55:23 07/09/2020 10:27:17 screening 936675455 Z36.88 [id number] Jaimee Hernandez MD [facility] [address] [place] [address] 07/16/2020 09:36:14 07/16/2020 09:58:45 Gestation period, 37 weeks 80797174 Z3A.37 Routine an tenatal care 191816652 Z34.03 [id number] Jaimee Hernandez MD [facility] [address] [place] [address] 07/24/2020 10:47:25 07/24/2020 11:48:24 Gestation period, 38 weeks 46091506 Z3A.38 Routine an tenatal care 511652634 Z34.03 [id number] Jaimee Hernandez MD [facility] [address] [place] [address] 07/29/2020 10:26:05 07/29/2020 12:28:09 Gestation period, 39 weeks 28614745 Z3A.39 Routine an tenatal care 202430017 Z34.03 [id number] Jaimee Hernandez MD [facility] [address] [place] [address],[address] [place] [address] 08/04/2020 11:15:49 08/04/2020 14:37:12 Gestation period, 40 weeks 77657588 Z3A.40 Routine an tenatal care 758868821 Z34.03 Post-term 9096 8009 O48.0 [id number] DEBBY CURRAN [facility] [address] [place] [address],[address] [place] [address] 08/04/2020 11:16:41 08/04/2020 14:36:35 Post-term 38710104 O48.0 Gestation period, 40 weeks 29117876 Z3A.40 [id number] Jaimee Hernandez MD [address] [place] [address] 08/13/2020 11:22:16 08/14/2020 10:07:30 Gestation period, 41 weeks 68251198 Z3A.41 Vaginal delivery 3705484 07 O80 Single live 405282 009 Z37.0 [id number] Jaimee Hernandez MD [address] [address] 09/24/2020 11:09:11 09/24/2020 14:34:41 care 089491173 Z39.2 Contracept ion care management 218241748 Z30.9 Maternal p ostpartum depression screening 5157603969 56944 Z13.32 [id number] Jaimee Hernandez MD [address] [address] 03/18/2021 13:14:34 03/18/2021 14:42:34 Gynecologic examination 45996945 Z01.944 [id number] Jaimee Hernandez MD [address] [place] [address] 03/11/2022 09:55:12 03/11/2022 12:12:04 Gynecologic examination 27790293 Z01.419 Contracept ion care management 247829707 Z30.9 [id number] MD HEVER Renee [address] [place] [address] 06/15/2022 14:53:28 06/15/2022 16:13:34 Irregular periods 37915978 N92.6 [id number] MD HEVER Melara [address] [facility],[address] [place] [address] 03/17/2023 16:37:11 03/17/2023 17:08:36 Gynecologic examination 68053641 Z01.211 [id number] MD HEVER Melara [address] [place] [address] 12/04/2023 09:53:13 12/04/2023 10:36:30 Irregular periods 09093265 N92.6 Secondary oligomenorrhea 86104082 N91.4 [id number] MD HEVER Melara [address] [facility],[address] [place] [address] 03/07/2024 14:53:32 03/07/2024 16:23:31 Urine test positive 566198408 Z32.01 Venereal d isease screening 430576598 Z11.3 Finding of viability of 133111123 O36.8990 Screening for malignant neoplasm of cervix 434719493 Z12.4 size does not accord with dates 277818681 O36.90X0 [id number] [address] [place] [address] 03/27/2024 14:46:33 03/27/2024 18:54:04 Routine care 778674525 Z34.91 Gestation period, 10 weeks 75748676 Z3A.10 screening 2437 39726 Z36.0 Hypothyroi dism in 289334884 E03.9 Finding of viability of 187828877 O36.8990 Health Concerns Section Related Observation LastModified by Organization Detai ls LastModified Time None Recorded Concern Status LastModified by Organization Details LastModified Time None Recorded Advance Directives Directive N: Payers Encounter Date Sequence Insurance Name Policy Number Policy Val[place] Covered Member ID Vallejo Member ID Guarantor Name 06/15/2022 1 [place] [id number] Miguel Angel Whalen [id number] Marisabel Whalen 03/17/2023 1 [place] [id number] Miguel Angel Whalen [id number] Marisabel Whalen 12/04/2023 1 [place] [id number] Miguel Angel Whalen [id number] Marisabel Whalen 03/07/2024 1 [place] [id number] Miguel Angel Whalen [id number] 36 Marisabel Whalen 03/27/2024 1 [place] [id number] Miguel Angel Whalen [id number] 36 Marisabel Whalen Notes Date Note Type [...] for ultrasound evaluation Danette Johnson MD [address], [place], [address], [facility] 06/15/2022 15:35:02 03/17/2023 text/html Annual CLOTH FEEDER - McwhcReported bypatient.History:no gynecologic complaints Menstrual cycle:Irregular cycle intervals; q30-45 days,usually 30-35d Urinary symptoms:No hematuria; No incontinence Vulvar complaints:None Vaginal complaints:none Gastrointestinal symptoms:no gastrointestinal symptoms Breast:No breast pain; No breast lump; No nipple discharge Current Contraception:[place] us relationship; Condoms Sexual complaints:No sexual complaints Menopausal Symptoms:No menopausal symptoms Menopausal statusno Psychological symptoms:No depression;Anxiety Jailkeeper offered per [facility] policy. Jailkeeper was{{ACCEPTED DECLINED *}} The patient is a [...] her Gardasil series. Jaimee Hernandez MD [address], [place], [address], [facility] 03/19/2023 21:37:20 12/04/2023 text/html [...] 0.129L, free T4 1.74. She saw her ranch cook Dr Gamez in October 2023 and no adjustments were made. Reports possibly having mild hot flashes but doesn't know when that started.Denies vaginal dryness. Patient with on 08/11/2020 and stopped in Spring 2021. No nipple discharge. No vision changes. No headaches. No change in bowel movement. No change in weight since March 2023. Jaimee Hernandez MD [address], [place], [address], [place] [facility] 12/05/2023 13:37:02 03/07/2024 text/html Jailkeeper offere d per [facility] policy. Jailkeeper was{{ACCEPTED DECLINED *}}.New Patient Obstetrical HistoryPatient is [...] illness {{no* yes}} Jaimee Hernandez MD [address], [place], [address], [facility] 03/07/2024 18:14:00 OBGyn Episode Ob Episode Information Episode Created Date Number of Fetuses Patient Bloodtype Patient rh Status Prepregnancy Weight lbs Domestic Partner Domestic Partner Phone Father Name Patient Registration Manager Status 04/11/20 20 1 O Positive Miguel Angel CLOSED Fetus Data First Name Last Name Admitted to NICU Weight (g) Sex Living Outcome Pediatric Complications Fetus ID Race Codes Race Delivery Type RIver false 3795.15 72823 M Full Term 1059 Vaginal Problems Problem Notes Growth US @ 36w = EFW 3156g (66.4%) , YOUNG 13, vertexGrowth US on 08/04 @ 40w1 EFW 4103g, 91%, YOUNG 18. Problem Name Start Date End Date Resolution Snomed Code Not e Asthma 466555811 Anemia 691494515 Hgb 9.6 at 27w3 on 05/07/2020. start Fe/colace Rubella non-immune [id number] n eeds MMR Disorder of thyroid gland 63829701 Thyroid mass: s een by endo, FNA on 01/03/2020 path showing follicular lesion of unknown significant (15% risk of malignancy), deferred FNA until . On 12/12/2019 TSH 1.74, FT 1.19, T3 135 (wnl). On 02/26 TSH 2.54, fT4 1.22. [x] On 05/07 at 27w3 TSH 3.0, freeT4 0.095. [employer] message sent to Dr. Gamez (caesar) w/results, no need to start meds. Routine care [id number] O+, rubella NON-immune, declined genetic screening, AFP [...] Weight in lbs Pre/Post Dialysis Refused Weight 176.707925519975 BP Diastolic BP Location Tested BP Systolic [...] Weight in lbs Pre/Post Dialysis Refused Weight 182.502338726029 BP Diastolic BP Location Tested BP Systolic [...] Weight in lbs Pre/Post Dialysis Refused Weight 183.237266327902 BP Diastolic BP Location Tested BP Systolic [...] Weight in lbs Pre/Post Dialysis Refused Weight 183.668129461652 BP Diastolic BP Location Tested BP Systolic [...] Weight in lbs Pre/Post Dialysis Refused Weight 188.654020718906 BP Diastolic BP Location Tested BP Systolic [...] Type Weight in lbs Pre/Post Dialysis Refused 189.280405649428 BP Diastolic BP Location Tested BP Systolic [...] Cervic Effacement Cervic Station 38 wks none [place] neg Type Weight in lbs Pre/Post Dialysis Refused Weight 197.529723486456 BP Diastolic BP Location Tested BP Systolic [...] in lbs Pre/Post Dialysis Refused With clothes 190.162913024540 BP Diastolic BP Location Tested BP Systolic [...] Weight in lbs Pre/Post Dialysis Refused Weight 194.573230130165 BP Diastolic BP Location Tested BP Systolic [...] Disease false Other Infection History false Thalassemia (Citizen Of [place], [place], Mediterranean, Or Background): MCV < 80 true Pt is part Citizen Of [place] Patient Or Baby's Father Had A Child [...] false Prior GBS-infected child false Marty-Sachs (eg, Yarsani, [place] , Malagasy-Citizen Of [place]) false History Of STD, Gonorrhea, C hlamydia, HPV, Syphilis false History of HIV false History of Hepatitis false Neural Tube Defect (Meningom yelocele, Spina Bifida, Or Anencephaly) false Hemophilia Or Other Blood Disorders false Mobile's [place] false If Yes, Was Person Tested [...] Domestic Partner Domestic Partner Phone Father Name Patient Registration Manager Status 03/07/20 24 1 O Positive CLOSED Fetus Data First Name Last Name Admitted to NICU Weight (g) Sex Living Outcome Pediatric Complications Fetus ID Race Codes Race Delivery Type [id number] Problems Problem Notes Problem Name Start Date End Date Resolution Snomed Code Not e Asthma [id number] Postoperative hypothyroidism [id number] - s/p complet e thyroidectomy for papillary thyroid carcinoma (2019)- f/b endo- on levothyroxine (137mcg 5d/w, half tab 2d/w)- on 03/05/2024: TSH 2.734, free T4 1.29 Migraine [id number] Routine care [id number] - dating by US on 03/07/2024 [...] in lbs Pre/Post Dialysis Refused With clothes 189.049329936729 BP Diastolic BP Location Tested BP Systolic BP Type 82 R arm 118 sitting Fetus Heart Rate Present Fetus Movement Comments Flowsheet Date 03/27/2024 Ferrell Score Blood Edema Fundus Height Fundus Units Glucose Ketones Leukocytes Nitrite Labor Signs Protein Cervic Dilation Cervic Effacement Cervic Station none none neg Type Weight in lbs Pre/Post Dialysis Refused With clothes 191.087653065862 BP Diastolic BP Location Tested BP Systolic [...] Defect false Down Syndrome false Marty-Sachs (eg, Yarsani, [place] , Malagasy-Citizen Of [place]) false If Yes, Was Person Tested For [...] With Defects Not Listed Above false Thalassemia (Citizen Of [place], [place], Mediterranean, Or Background): MCV < 80 false [...]
--- OUTSIDE RECORDS SUMMARY | 2024-10-22 06:06 | XMS_ITS | Data Portability ---
Author Organization [facility] [place] Address [address] [place] [address] [place] [address] Assessment Encounter Date Assessment Date Assessment LastModified by Organization Details LastModified Time 10/18/2024 10/18/2024 Patient is _39__weeks . Discussed plan. Not available 10/18/2024 11:52:25 Plan of Treatment Reminders Order Date Submit Date Provider Last Modified By Organization Details Last Modified Time Details Appointments None recorded. Lab None recorded. Referral None recorded. Procedures None recorded. Surgeries None recorded. Imaging non-stress test 2024 025 marlee maria [place], [address], [place], [address], 06:42:13 US, obstetric, biophysical profile + non-stress test 2024 025 [email or web address] [place] [address], [address], [place], [address], 10:55:25 non-stress test 2024 Vivien maria [place] [facility] [address], [place], [address], 02:55:33 US, obstetric, biophysical profile + non-stress test 2024 025 [email or web address] [place], [address], [place], [address], 16:12:42 Medication Orders None recorded. Patient TargetsNo targets recorded. Patient InstructionsNo instructions recorded. Reason for Referral None Reported. Results Created Date Observation Date Name Description Value Unit Range Abnormal Flag Note LastModifiedBy Organization Detail LastModifiedTime 09/20/19 25 09/20/2024 TSH, REFLE X FREE T4 TSH 2.93 uIU/m L 0.30-5 .33 Not Available [facility] (Lab) [address] [facility], [place], [address], 09/24/2024 01:45:55 09/20/19 25 09/20/2024 BILE ACIDS , TOTAL bile acids, total 6 umol/ L 0-10 Test Perfo rmed by: Sathya vargas rn [facility] [address] Not Available [facility] (Lab) [address] [facility], [place], [address], 09/24/2024 01:45:55 09/20/1909/20/2024 CULTU RE: GROUP B STREP SCREE N, REFLE X SUSCE PTIBI LITY result report SEE RESULT S BELOW Test: Cultu re: Group B Strep , Refle x Susce ptibi lity ([facility] ) Speci men Sourc e: Vagin a/Rec brian Speci men Type: Vagin al/Re ctal Speci men Date: 2024 1100 Resul t Date: 2024 1700 Resul t Statu s: Final resul t Abnor mal: No Resul ting Lab: [facility] [address] [facility] [address] Tel: CULTU RE ----- ----- ----- --- No Group B strep isola porter at 2 days (harsh ctive broth enhan cemen t) Not Available [facility] (Lab) [address] [facility], [place], [address], 09/24/2024 01:46:30 10/12/19 25 10/11/2024 CMP(C OMPRE HENSI VE METAB OLIC PANEL ) sodium 139 mmol/ L 133-14 6 Not Available [facility] (Lab) [address] [facility], [place], [address], 10/12/2024 11:36:39 10/12/19 25 10/11/2024 CMP(C OMPRE HENSI VE METAB OLIC PANEL ) potassium 3.9 mmol/ L 3.5-5. 1 Not Available [facility] (Lab) [address] [facility], [place], [address], 10/12/2024 11:36:39 10/12/19 25 10/11/2024 CMP(C OMPRE HENSI VE METAB OLIC PANEL ) chloride 105 mmol/ L 98-107 Not Available [facility] (Lab) [address] [facility], [place], [address], 10/12/2024 11:36:39 10/12/19 25 10/11/2024 CMP(C OMPRE HENSI VE METAB OLIC PANEL ) carbon dioxide 21 mmol/ L 21-31 Not Available [facility] (Lab) [address] [facility], [place], [address], 10/12/2024 11:36:39 10/12/19 25 10/11/2024 CMP(C OMPRE HENSI VE METAB OLIC PANEL ) anion gap 13 mmol/ L 4-13 Not Available [facility] (Lab) [address] [place], [address], 10/12/2024 11:36:39 10/12/19 25 10/11/2024 CMP(C OMPRE HENSI VE METAB OLIC PANEL ) blood urea nitrogen 8 mg/dL 7-25 Not Available [facility] (Lab) [address] [facility], [place], [address], 10/12/2024 11:36:39 10/12/19 25 10/11/2024 CMP(C OMPRE HENSI VE METAB OLIC PANEL ) creatinine 0.65 mg/dL 0.60-1 .30 Not Available [facility] (Lab) [address] [facility], [place], [address], 10/12/2024 11:36:39 10/12/19 25 10/11/2024 CMP(C OMPRE HENSI VE METAB OLIC PANEL ) egfrcr (CKD-epi 2020) >90 mL/mi n/1.7 3_m2 >=60 Not Available [facility] (Lab) [address] [facility], [place], [address], 10/12/2024 11:36:39 10/12/19 25 10/11/2024 CMP(C OMPRE HENSI VE METAB OLIC PANEL ) calcium 7.7 mg/dL 8.3-10 .5 low Not Available [facility] (Lab) [address] [facility], [place], [address], 10/12/2024 11:36:39 10/12/19 25 10/11/2024 CMP(C OMPRE HENSI VE METAB OLIC PANEL ) glucose 74 mg/dL 70-100 Not Available [facility] (Lab) [address] [facility], [place], [address], 10/12/2024 11:36:39 10/12/19 25 10/11/2024 CMP(C OMPRE HENSI VE METAB OLIC PANEL ) protein, total 6.3 g/dL 6.4-8. 3 low Not Available [facility] (Lab) [address] [place], [address], 10/12/2024 11:36:39 10/12/19 25 10/11/2024 CMP(C OMPRE HENSI VE METAB OLIC PANEL ) albumin 3.6 g/dL 3.5-5. 0 Not Available [facility] (Lab) [address] [facility], [place], [address], 10/12/2024 11:36:39 10/12/19 25 10/11/2024 CMP(C OMPRE HENSI VE METAB OLIC PANEL ) ALT 11 units /L 9-43 Not Available [facility] (Lab) [address] [facility], [place], [address], 10/12/2024 11:36:39 10/12/19 25 10/11/2024 CMP(C OMPRE HENSI VE METAB OLIC PANEL ) alkaline phosphatase 133 units /L 34-104 high Not Available [facility] (Lab) [address] [facility], [place], [address], 10/12/2024 11:36:39 10/12/19 25 10/11/2024 CMP(C OMPRE HENSI VE METAB OLIC PANEL ) AST 20 units /L 13-39 Not Available [facility] (Lab) [address] [facility], [place], [address], 10/12/2024 11:36:39 10/12/19 25 10/11/2024 CMP(C OMPRE HENSI VE METAB OLIC PANEL ) bilirubin, total 0.3 mg/dL 0.2-1. 2 Not Available [facility] (Lab) [address] [facility], [place], [address], 10/12/2024 11:36:39 10/12/19 25 10/11/2024 T4 FREE T4, free 0.54 NG/dL 0.60-1 .40 low This assay is susce ptibl e to inter feren ce from high level s of bioti n which may false ly eleva te resul ts. Pleas e corre late with clini scarlet findi ngs. Not Available [facility] (Lab) [address] [facility], [place], [address], 10/12/2024 11:36:40 10/12/19 25 10/11/2024 TSH, REFLE X FREE T4 TSH 8.76 uIU/m L 0.30-5 .33 high Not Available [facility] (Lab) [address] [facility], [place], [address], 10/12/2024 11:36:40 10/12/19 25 10/11/2024 BILE ACIDS , TOTAL bile acids, total 2 umol/ L 0-10 Test Perfo rmed by: Sathya vargas rn, [facility] [address] [place] [address] Not Available [facility] (Lab) [address] [facility], [place], [address], 10/12/2024 11:36:40 09/13/19 25 09/13/2024 US, obste tric, bioph ysica l profi le + non-s tress test No observ ation record ed. [facility] [address], [place], [address], 09/13/2024 18:33:01 09/13/19 25 09/13/2024 US, obste tric, follo w-up No observ ation record ed. [email or web address] [address] [facility], [place], [address], 09/16/2024 23:08:50 09/13/19 25 09/13/2024 non-s tress test No observ ation record ed. [email or web address] [place] [address], [place], [address], 09/13/2024 11:10:49 09/13/19 25 09/13/2024 non-s tress test No observ ation record ed. [email or web address] [place] [address], [place], [address], 09/13/2024 11:15:01 09/20/19 25 09/20/2024 US, obste tric, bioph ysica l profi le + non-s tress test No observ ation record ed. [facility] [address], [place], [address], 09/20/2024 17:09:37 09/20/19 25 09/20/2024 US, obste tric, bioph ysica l profi le + non-s tress test No observ ation record ed. [email or web address] [address] [address], [place], [address], 09/22/2024 12:39:22 09/20/19 25 09/20/2024 non-s tress test No observ ation record ed. [email or web address] [place] [address], [place], [address], 09/20/2024 10:43:16 09/27/19 25 09/27/2024 US, obste tric, bioph ysica l profi le No observ ation record ed. [email or web address] [address] [address], [place], [address], 10/01/2024 09:14:01 09/27/1909/27/2024 US, obste tric, follo w-up No observ ation record ed. [email or web address] [place] [address], [place], [address], 09/30/2024 22:54:47 09/27/19 25 09/27/2024 US, obste tric, bioph ysica l profi le + non-s tress test No observ ation record ed. [email or web address] [place] [address], [place], [address], 09/27/2024 17:55:41 09/27/19 25 09/27/2024 non-s tress test No observ ation record ed. [email or web address] [place] [address], [place], [address], 09/27/2024 18:22:16 09/27/19 non-s tress test No observ ation record ed. [email or web address] [place] [address], [place], [address], 09/27/2024 18:40:49 10/04/19 25 10/04/2024 US, obste tric, bioph ysica l profi le + non-s tress test No observ ation record ed. [facility] [address], [place], [address], 10/04/2024 18:37:09 10/04/19 25 10/04/2024 US, obste tric, follo w-up No observ ation record ed. [email or web address] [address] [address], [place], [address], 10/06/2024 22:07:32 10/04/19 25 10/04/2024 non-s tress test No observ ation record ed. [place] [address], [place], [address], 10/04/2024 17:39:41 10/04/19 25 10/04/2024 non-s tress test No observ ation record ed. [email or web address] [place] [address], [place], [address], 10/04/2024 18:26:08 10/12/19 25 10/11/2024 , robert mckeon, bioph ysica l profi le + non-s tress test No observ ation record ed. [facility] [address], [place], [address], 10/11/2024 17:35:19 10/12/19 25 10/11/2024 US, obste tric, follo w-up No observ ation record ed. [email or web address] [address], [place], [address], 10/11/2024 17:38:47 10/12/19 25 10/11/2024 non-s tress test No observ ation record ed. [email or web address] [place] [address], [place], [address], 10/11/2024 10:43:52 10/12/19 25 10/11/2024 non-s tress test No observ ation record ed. [email or web address] [place] [address], [place], [address], 10/11/2024 10:46:46 10/19/19 25 10/18/2024 US, obste tric, bioph ysica l profi le No observ ation record ed. [email or web address] [address] [facility], [place], [address], 10/18/2024 10:12:43 10/19/19 25 10/18/2024 US, obste tric, bioph ysica l profi le + non-s tress test No observ ation record ed. [facility] [address], [place], [address], 10/18/2024 17:32:39 10/19/19 25 10/18/2024 US, obste tric, bioph ysica l profi le + non-s tress test No observ ation record ed. [email or web address] [address] [facility], [place], [address], 10/18/2024 17:30:40 10/19/19 25 10/18/2024 non-s tress test No observ ation record ed. [email or web address] [place] [address], [place], [address], 10/18/2024 10:55:42 10/19/19 25 10/18/2024 imagi ng/di agnos tic resul t No observ ation record ed. [address] [facility] [address], [place], [address], 10/20/2024 22:54:17 10/19/19 25 10/18/2024 US, obste tric, bioph ysica l profi le + non-s tress test No observ ation record ed. [email or web address] [address], [place], [address], 10/20/2024 17:08:00 Result Notes None recorded. Problems Name Problem SNOMED Code Status Onset Date Resolution Date Notes Provider Name and Address Organization Details Recorded Time 67400276 Active 2023 Zenaida munoz, [facility] 4 11:24:46 History of malignant neoplasm of thyroid 605726304 Active check labs every trimester 175mcg levothyro xine 10/11/2024 tsh 8.76 thyroid dose increase to 200mcg Zenaida munoz, [facility] 5 14:56:01 Mixed anxiety and depressiv e disorder 710610572 Active 2023 sertralin e 50mg Claudia Mathews CNM [address], [place], [address], [facility] 4 11:13:56 History of thyroidec meena 841903316 Active 2023 Zenaida munoz, [facility] 4 11:00:54 Mixed anxiety and depressiv e disorder 306547879 Active 2023 sertralin e 50mg Claudia Mathews CNM [address], [place], [address], [facility] 4 11:13:56 Migraine 81241783 Active 2023 Zenaida munoz, [facility] 4 11:01:19 Problem Notes None recorded. Procedures Surgical History Date Name Laterality Status Provider Name and Address Organization Details Recorded Time 4 Date of Last Pap Smear completed Zenaida Reynoso [facility] 04/15/2024 11:24:36 1 Thyroid Surgery completed Zenaida Reynoso [facility] 05/15/2024 10:59:40 9 extraction of wisdom tooth completed Zenaida Reynoso [facility] 04/15/2024 11:33:18 Imaging Results Imaging Date Name Status LastModified by Organiz ation Details LastModified Time 09/13/2024 US, obstetric, biophysical profile + non-stress test completed [place] [address], [place], [address], 09/13/2024 18:33:01 09/13/2024 US, obstetric, follow-up completed [email or web address] [address] [address], [place], [address], 09/16/2024 23:08:50 09/13/2024 non-stress test completed [email or web address] [place] [address], [place], [address], 09/13/2024 11:10:49 09/13/2024 non-stress test completed [email or web address] [place] [address], [place], [address], 09/13/2024 11:15:01 09/20/2024 US, obstetric, biophysical profile + non-stress test completed [place] [address], [place], [address], 09/20/2024 17:09:37 09/20/2024 US, obstetric, biophysical profile + non-stress test completed [email or web address] [address], [place], [address], 09/22/2024 12:39:22 09/20/2024 non-stress test completed [email or web address] [place] [address], [place], [address], 09/20/2024 10:43:16 09/27/2024 US, obstetric, biophysical profile completed [address], [place], [address], 10/01/2024 09:14:01 09/27/2024 US, obstetric, follow-up completed [email or web address] [place] [address], [place], [address], 09/30/2024 22:54:47 09/27/2024 US, obstetric, biophysical profile + non-stress test completed [facility] [address], [place], [address], 09/27/2024 17:55:41 09/27/2024 non-stress test completed [email or web address] [place] [address], [place], [address], 09/27/2024 18:22:16 09/27/2024 non-stress test completed [email or web address] [place] [facility] [address], [place], [address], 09/27/2024 18:40:49 10/04/2024 US, obstetric, biophysical profile + non-stress test completed [facility] [address], [place], [address], 10/04/2024 18:37:09 10/04/2024 US, obstetric, follow-up completed [email or web address] [address], [place], [address], 10/06/2024 22:07:32 10/04/2024 non-stress test completed [email or web address] [place] [address], [place], [address], 10/04/2024 17:39:41 10/04/2024 non-stress test completed [email or web address] [place] [address], [place], [address], 10/04/2024 18:26:08 10/11/2024 US, obstetric, biophysical profile + non-stress test completed [facility] [address], [place], [address], 10/11/2024 17:35:19 10/11/2024 US, obstetric, follow-up completed [email or web address] [address] [address], [place], [address], 10/11/2024 17:38:47 10/11/2024 non-stress test completed [email or web address] [place] [address], [place], [address], 10/11/2024 10:43:52 10/11/2024 non-stress test completed [email or web address] [place] [address], [place], [address], 10/11/2024 10:46:46 10/18/2024 US, obstetric, biophysical profile completed [email or web address] [address], [place], [address], 10/18/2024 10:12:43 10/18/2024 US, obstetric, biophysical profile + non-stress test completed [facility] [address], [place], [address], 10/18/2024 17:32:39 10/18/2024 US, obstetric, biophysical profile + non-stress test completed [email or web address] [address], [place], [address], 10/18/2024 17:30:40 10/18/2024 non-stress test completed [email or web address] [place] [address], [place], [address], 10/18/2024 10:55:42 10/18/2024 imaging/diagnos tic result active [email or web address] [facility] [address], [place], [address], 10/20/2024 22:54:17 10/18/2024 US, obstetric, biophysical profile + non-stress test active [email or web address] [address], [place], [address], 10/20/2024 17:08:00 Procedure Notes None recorded. Medical Equipment None Reported. Allergies No known drug allergies Medications Name Sig Start Date Stop Date Status Note LastModified by Organization Details LastModified Time levothyroxine 175 mcg tablet TAKE 1 TABLET BY MOUTH EVERY DAY active Not Available Not Available No t Available levothyroxine 137 mcg tablet 08/01 completed Not Available Not Available Not Available metronidazole 500 mg tablet TAKE 1 TABLET BY MOUTH EVERY 12 HOURS 08/29 completed Not Available Not Available Not Available levothyroxine 150 mcg tablet Take 1 tablet every day by oral route. 08/01 completed Not Available Not Available Not Available levothyroxine 200 mcg tablet TAKE 1 TABLET BY MOUTH EVERY DAY active Not Available Not Available No t Available sertraline 50 mg tablet active Not Available Not Available No t Available sertraline 09/20 completed Not Available Not Available Not Available levothyroxine 08/02 completed Not Available Not Available Not Available 05/15 completed Not Available Not Available Not Available Vitamin active Not Available Not Available Not Available Vitals Date Recorded Body height Body mass index (BMI) Body weight Body height Body mass index (BMI) Body weight Systolic blood pressure Diastolic blood pressure Systolic blood pressure Diastolic blood pressure Provider Name and Address Organization Details Last Updated DateTime 5 167.64 cm 34.5 kg/m2 65376.7 7 g 167.64 cm 34.5 kg/m2 56416.7 7 g 122 mm[Hg] 79 mm[Hg] 122 mm[Hg] 79 mm[Hg] Zenaida Reynoso [facility] 5 10:41:46 Date Recorded Body height Body mass index (BMI) Body weight Systolic blood pressure Diastolic blood pressure Provider Name and Address Organization Details Last Updated DateTime 10/18/2024 167.64 cm 34.7 kg/m2 27411.36 g 116 mm[Hg] 80 mm[Hg] Claudia Mathews, [facility] [address], [place], [address], [facility] 5 10:46:41 Social History Question Answer Notes LastModified by Organizat ion Details LastModified Time Tobacco Smoking Status Never Smoker Zenaida munoz, [facility] 04/15/2024 11:33:39 What Is Your Level Of Alcohol Consumption? None [email or web address] Information not available 04/15/2024 If You Are , What Was Your Level Of Alcohol Consumption Prior To ? Occasional [email or web address] Information not available 04/15/2024 How Many Years Have You Consumed Alcohol? 9 [email or web address] Information not available 04/15/2024 Are You Blind Or Do You Have Difficulty Seeing? No [email or web address] Information not available 04/15/2024 What Is Your Level Of Caffeine Consumption? Moderate Information not available 04/15/2024 How Much Tobacco Do You Chew? None [email or web address] Information not available 04/15/2024 In The 14 Days Before Symptom Onset, Have You Had Close Contact With A Laboratory-confir med COVID-19 While That Case Was Ill? No [email or web address] Information not available 04/15/2024 In The 14 Days Before Symptom Onset, Have You Had Close Contact With A Person Who Is Under Investigation For COVID-19 While That Person Was Ill? No Information not available 04/15/2024 Have You Been To An Area Known To Be High Risk For COVID-19? No [email or web address] Information not available 04/15/2024 Are You Deaf Or Do You Have Serious Difficulty Hearing? No [email or web address] Information not available 04/15/2024 What Type Of Diet Are You Following? REGULAR [email or web address] Information not available 04/15/2024 What Is The Highest Grade Or Level Of School You Have Completed Or The Highest Degree You Have Received? [id number] [email or web address] Information not available 04/15/2024 What Is Your Occupation? Stay At Home Mom [email or web address] Information not available 05/15/2024 Are There Any Guns Present In Your Home? No [email or web address] Information not available 04/15/2024 Do You Use Protection During Sex? No [email or web address] Information not available 04/15/2024 Do You Use Your Seat Belt Or Car Seat Routinely? Yes [email or web address] Information not available 04/15/2024 Do You Have Smoke And Carbon Monoxide Detectors In Your Home? Yes [email or web address] Information not available 04/15/2024 How Much Tobacco Do You Smoke? No [email or web address] Information not available 04/15/2024 Do You Feel Stressed (tense, Restless, Nervous, Or Anxious, Or Unable To Sleep At Night)? [id number] [email or web address] Information not available 05/15/2024 Do You Use Any Illicit Or Recreational Drugs? No [email or web address] Information not available 04/15/2024 Do You Use Sunscreen Routinely? No [email or web address] Information not available 04/15/2024 Has Tobacco Cessation Counseling Been Provided? No [email or web address] Information not available 04/15/2024 Have You Used IV Drugs? No Information not available 05/15/2024 Do You Or Have You Ever Used Any Other Forms Of Tobacco Or Nicotine? No [email or web address] Information not available 04/15/2024 Sex: Unknown Functional Status Question Answer Note LastModified by Organizat ion Details LastModified Time Do you have difficulty walking or climbing stairs? No [email or web address] Information not available 04/15/2024 Are you able to walk? YESWOREST [email or web address] Information not available 04/15/2024 Are you able to care for yourself? Yes [email or web address] Information not available 04/15/2024 Do you have difficulty dressing or bathing? No [email or web address] Information not available 04/15/2024 What is your exercise level? Moderate Information not available 04/15/2024 Mental Status None recorded. Family History Relationship Description Onset Age of this Age Resolved Age Notes LastModified by Organization Details LastModified Time Brother Anxiety disorder [email or web address] Not available 07/12 09:44:15 Brother Mental disorder [email or web address] Not available 07/12 09:44:15 Paternal Grandmother Hypercholest erolemia [email or web address] Not available 07/12 09:44:15 Paternal Grandmother Depressive disorder [email or web address] Not available 07/12 09:44:15 Paternal Grandmother Malignant tumor of cervix [email or web address] Not available 07/12 09:44:15 Paternal Grandmother Hypertensive disorder [email or web address] Not available 07/12 09:44:15 Mother Hypercholest erolemia [email or web address] Not available 07/12 09:44:15 Mother Anxiety disorder [email or web address] Not available 07/12 09:44:15 Mother Depressive disorder [email or web address] Not available 07/12 09:44:15 Mother Malignant tumor of cervix [email or web address] Not available 07/12 09:44:15 Mother Malignant tumor of ovary [email or web address] Not available 07/12 09:44:15 Mother Hypertensive disorder [email or web address] Not available 07/12 09:44:15 Mother Heart disease [email or web address] Not available 07/12 09:44:15 Mother Substance abuse [email or web address] Not available 07/12 09:44:15 Mother Mental disorder [email or web address] Not available 07/12 09:44:15 Mother Transient cerebral ischemia adecqoe33 Not available 2024 09:31:22 Maternal Aunt Anxiety disorder [email or web address] Not available 07/12 09:44:15 Maternal Aunt Substance abuse [email or web address] Not available 07/12 09:44:15 Maternal Aunt Mental disorder [email or web address] Not available 07/12 09:44:15 Maternal Aunt Depressive disorder [email or web address] Not available 07/12 09:44:15 Sister Anxiety disorder [email or web address] Not available 07/12 09:44:15 Sister Mental disorder [email or web address] Not available 07/12 09:44:15 Sister Depressive disorder [email or web address] Not available 07/12 09:44:15 Maternal Grandfather Hypercholest erolemia [email or web address] Not available 07/12 09:44:15 Maternal Grandfather Hypertensive disorder [email or web address] Not available 07/12 09:44:15 Maternal Grandfather Myocardial infarction [email or web address] Not available 01/2024 09:44:15 Paternal Grandfather Hypercholest erolemia [email or web address] Not available 07/12 09:44:15 Paternal Grandfather Asthma [email or web address] Not available 01/2024 09:44:15 Paternal Grandfather Hypertensive disorder Not available 07/12 09:44:15 Paternal Grandfather Heart disease [email or web address] Not available 07/12 09:44:15 Medical History Condition Response Allergies (Food, seasonal, environmental ) N Other N Breast Cancer N Drug/Latex Allergies/Reactions N Blood Transfusion N Dermatologic Disorders N Lung Disease N Defects or Inherited Disease N Breast Problem N Gestational Diabetes N Hematologic disorders N Anesthesia Complications N History of STI N Deep Vein Thrombosis N Polycystic ovary syndrome N Anxiety Disorder Y Autoimmune disease N Arthritis N Infertility N Polyps N Acid Reflux (GERD) N History of abnormal pap N Cancer Y Stroke N Varicosities N Neurologic/Epilepsy N Endometriosis N High Cholesterol N Headaches Y Fibromyalgia N Kidney Disease N Heart Problems N Kidney or Bladder Problems N Thyroid Problems Y GI Problems N Eating Disorder N Anemia N Art (IVF or FET) N Psychiatric Illness N Ovarian Cancer N Diabetes N Pulmonary (TB, Asthma) N Hepatitis/Liver Disease N No Past Medical History N Eczema N Urinary Tract Infection N Abuse/Domestic Violence N Asthma N Trauma/Violence N Depression/ depression Y Heart Disease N Pre-Eclampsia N Hypertension N Osteoporosis N Thrombophilias N Gynecological History Statement/Question Response Date of Last Mammogram Date of LMP 01/07/2024 On BCP's at Conception? N N Was last menstrual period normal Y STIs/STDs N HPV Vaccine N Duration of Flow (days) 5 Current Control Method Age at First Child 24 Date of Last Colonoscopy Most Recent Bone Density Sexually Active? Y Date of DEXA bone scan Age of first menstrual cycle 14 Date of Last Pap Smear 03/27/2024 Sexual Problems? N LMP Definite N Obstetrics History GPAL:G 3 P 1 0 1 1 Type Value Full Term 1 Spontaneous 1 Living 1 Total 3 Past Encounters Encounter ID Performer Location Encounter Start Date Encounter Closed Date Diagnosis/Indication Diagnosis SNOMED-CT Code Diagnosis ICD10 Code Diagnosis Note [id number] [facility] [address],[place] [address] 04/15/2024 10:03:13 04/15/2024 11:29:24 screening 189573620 Z36.82 Z3A.12 [id number] Lauri Sargent MD [facility] [address],[place] [address] 04/15/2024 10:06:02 04/15/2024 12:26:50 Gestation period, 12 weeks 76239231 Z3A.12 Routine an tenatal care 721414722 Z34.90 [id number] Claudia Mathews CNM [facility] [address],[place] [address] 05/15/2024 10:43:45 05/15/2024 11:14:30 screening 418096086 Z36.89 Gestation period, 17 weeks [id number] Z3A.17 [id number] [facility] [address],[place] [address] 06/14/2024 09:29:37 06/14/2024 10:41:16 screening for malformation 815163558 Z36.3 Z3A.21 [id number] Claudia Mathews CNM [facility] [address],[place] [address] 06/14/2024 09:30:01 06/14/2024 11:15:59 Gestation greater than 20 weeks 192618226 Z3A.21 [id number] Shannan Delgado [facility] [address] [place] [address] 07/12/2024 09:01:44 07/12/2024 09:37:49 screening [id number] Z36.2 Z3A.25 [id number] Claudia Mathews CNM [facility] [address],[place] [address] 07/12/2024 09:02:21 07/12/2024 10:21:34 Routine care 074206768 Z34.[id number] [facility] [address],[place] [address] 08/02/2024 11:45:58 08/02/2024 12:36:04 Gestation period, 28 weeks [id number] Z3A.[id number] [facility] [address],[place] [address] 08/16/2024 11:07:28 08/16/2024 12:27:16 Gestation period, 30 weeks 94268702 Z3A.30 History of thyroidectomy 920000717 Z90.09 Vaginitis 04441078 N76.0 [id number] [facility] [address],[place] [address] 08/30/2024 09:33:00 08/30/2024 10:40:05 Hypothyroidism in 518980741 E03.9 O99.283 Z3A.32 [id number] Joyce Castlewood [facility] [address] [place] [address] 08/30/2024 09:33:25 09/02/2024 14:42:59 History of malignant neoplasm of thyroid 920554154 Z85.[id number] [facility] [address],[place] [address] 08/30/2024 09:34:37 08/30/2024 11:14:53 Gestation period, 32 weeks 7416443 Z3A.32 [id number] [facility] [address] [place] [address] 09/06/2024 09:57:51 09/06/2024 10:42:43 Hypothyroidism in 543649909 E03.9 O99.283 Z3A.33 [id number] Joyce Andrews [facility] [address] [place] [address] 09/06/2024 09:58:14 09/06/2024 11:21:45 History of malignant neoplasm of thyroid 712703223 Z85.[id number] [facility] [address],[place] [address] 09/06/2024 09:58:38 09/06/2024 12:08:58 Gestation period, 33 weeks 88944091 Z3A.33 [id number] [facility] [address],[place] [address] 09/13/2024 09:31:22 09/13/2024 09:58:49 Hypothyroidism in 406181002 E03.9 O99.283 Z3A.33 Z3A.34 [id number] Zenaida Reynoso [facility] [address],[place] [address] 09/13/2024 09:31:48 09/13/2024 11:33:09 Hypothyroidism 23274784 E03.[id number] [facility] [address],[place] [address] 09/13/2024 09:32:35 09/13/2024 11:32:43 Gestation period, 34 weeks 55725003 Z3A.34 [id number] [facility] [address],[place] [address] 09/20/2024 09:30:51 09/20/2024 10:06:56 Hypothyroidism in 530416694 E03.9 O99.283 Z3A.35 [id number] SKIP Granados [facility] [address],[place] [address] 09/20/2024 09:32:06 09/20/2024 10:45:07 Thyroiditis 86736903 E06.[id number] [facility] [address],[place] [address] 09/20/2024 09:32:20 09/20/2024 11:03:11 Gestation period, 35 weeks 31067775 Z3A.35 [id number] [facility] [address],[place] [address] 09/27/2024 09:57:04 09/27/2024 14:28:55 Hypothyroidism in 839537435 E03.9 O99.283 Z3A.36 [id number] Zenaida Reynoso [facility] [address],[place] [address] 09/27/2024 09:57:33 09/30/2024 10:48:49 Thyroiditis 01841107 E06.[id number] [facility] [address],[place] [address] 09/27/2024 09:58:18 09/27/2024 11:53:27 Gestation period, 36 weeks 63243885 Z3A.36 [id number] [facility] [address],[place] [address] 10/04/2024 09:32:09 10/04/2024 10:10:58 Hypothyroidism in 698821663 E03.9 O99.283 Z3A.37 [id number] [facility] [address],[place] [address] 10/04/2024 09:34:38 10/07/2024 09:20:26 Thyroid dysfunction 326386342 E07.[id number] [facility] [address],[place] [address] 10/04/2024 09:35:10 10/04/2024 11:37:09 Routine care 093532301 Z34.92 [id number] [facility] [address],[place] [address] 10/11/2024 09:31:47 10/11/2024 10:04:23 Hypothyroidism in 982895519 E03.9 O99.283 Z3A.38 [id number] Zenaida Reynoso [facility] [address],[place] [address] 10/11/2024 09:33:49 10/11/2024 10:48:24 Hypothyroidism 03193076 E03.9 [id number] JAUN MCBRIDE MD [facility] [address],[place] [address] 10/11/2024 10:08:47 10/11/2024 11:51:09 History of thyroidectomy 313592061 Z90.09 Mixed anxi ety and depressive disorder 454202621 F41.8 Gestation period, 38 weeks 90300386 Z3A.38 [id number] Joyce Andrews [facility] [address],[place] [address] 10/18/2024 09:30:07 10/18/2024 11:45:38 Thyroid disease in 143747093 E07.9 [id number] Shannan Delgado [facility] [address],[place] [address] 10/18/2024 09:31:10 10/18/2024 10:05:44 Hypothyroidism in 751531861 E03.9 O99.283 Z3A.[id number] [facility] [address],[place] [address] 10/18/2024 09:31:36 10/18/2024 12:00:19 Gestation period, 39 weeks 98568431 Z3A.39 Health Concerns Section Related Observation LastModified by Organization Detai ls LastModified Time None Recorded Concern Status LastModified by Organization Details LastModified Time None Recorded Advance Directives Directive None Recorded Payers Encounter Date Sequence Insurance Name Policy Number Policy [place] Covered Member ID [place] Member ID Guarantor Name 10/11/2024 1 [place] [id number] Miguel Angel Whalen [id number] Miguel Angel Whalen 10/11/2024 1 [place] [id number] Miguel Angel Whalen [id number] Miguel Angel Whalen 10/18/2024 1 [place] [id number] Miguel Angel Whalen [id number] Miguel Angel Whalen 10/18/2024 1 [place] [id number] Miguel Angel Whalen [id number] Miguel Angel Whalen 10/18/2024 1 [place] [id number] Miguel Angel Whalen [id number] Miguel Angel Whalen OBGyn Episode Ob Episode Information Episode Created Date Number of Fetuses Patient Bloodtype Patient rh Status Prepregnancy Weight lbs Domestic Partner Domestic Partner Phone Father Name Passenger [place]man Status 04/15/20 24 1 O Positive 188 Miguel Angel love OPEN Fetus Data First Name Last Name Admitted to NICU Weight (g) Sex Living Outcome Pediatric Complications Fetus ID Race Codes Race Delivery Type [id number] Problems Problem Notes [id number] growth us Problem Name Start Date End Date Resolution Snomed Code Not e History of malignant neoplasm of thyroid [id number] check la bs every [id number] levothyroxine10/11/2024 tsh 8.76 thyroid dose increase to 200mcg Mixed anxiety and depressive disorder 05/15/2024 [id number] sertrali ne 50mg Carlo Calculation Initial Carlo Date Initial Exam Date Initial Exam Provider Initial Ultrasound Date Last Menstrual Period Date Ultra Sound Weeks Gestation 10/22/2024 04/15/2024 Dr Sargent 04/15/2024 01/07/2024 12 Eighteen To Twenty Week Carlo Update Ultra Sound Date Fundal Height At Umbil Quickening Date Ultra Sound Latest Weeks Gestation Final Carlo Confirmed By Final Carlo Confirmed Date Final Carlo Date Ultra Sound Latest Days Gestation 0 [email or web address] 04/15/2024 10/23/19 25 0 Pre-randolph Flowsheet Flowsheet Date 04/15/2024 Ferrell Score Blood Edema Fundus Height Fundus Units Glucose Ketones Leukocytes Nitrite Labor Signs Protein Cervic Dilation Cervic Effacement Cervic Station none none trace Type Weight in lbs Pre/Post Dialysis Refused Weight 188.552471026692 BP Diastolic BP Location Tested BP Systolic BP Type 91 135 Fetus Heart Rate Present A 154 Fetus Movement A No Comments this patient is a 28-year-ol d multiparous female at 12 weeks' gestation who presents for initial care. She has a history of term vaginal births. Her medical, surgical, obstetric history is unremarkable. She is vaccinated. She was given precautions recommendations for . We talked about vaccines in . Talked about care in detail. She is having genetic testing. She had a normal 12 week ultrasound. To begin routine care.h/o thyroid cancer, depression Flowsheet Date 05/15/2024 Ferrell Score Blood Edema Fundus Height Fundus Units Glucose Ketones Leukocytes Nitrite Labor Signs Protein Cervic Dilation Cervic Effacement Cervic Station none Type Weight in lbs Pre/Post Dialysis Refused 188.687316278872 BP Diastolic BP Location Tested BP Systolic BP Type 78 115 Fetus Heart Rate Present Fetus Movement A Yes Comments Patient states that is havin g some discharge. Flowsheet Date 06/14/2024 Ferrell Score Blood Edema Fundus Height Fundus Units Glucose Ketones Leukocytes Nitrite Labor Signs Protein Cervic Dilation Cervic Effacement Cervic Station Type Weight in lbs Pre/Post Dialysis Refused BP Diastolic BP Location Tested BP Systolic BP Type Fetus Heart Rate Present Fetus Movement Comments Flowsheet Date 06/14/2024 Ferrell Score Blood Edema Fundus Height Fundus Units Glucose Ketones Leukocytes Nitrite Labor Signs Protein Cervic Dilation Cervic Effacement Cervic Station neg none trace Type Weight in lbs Pre/Post Dialysis Refused 189.677976854444 BP Diastolic BP Location Tested BP Systolic BP Type 81 121 Fetus Heart Rate Present Fetus Movement A Yes Comments Patient is having skin irrat ation and breakouts. ok for keflex if sxs , pain redness return, +FM reviewed us LVEIF, normal NIPT, anatomy incomplete, reviewed vaccines, discussed [facility] questions answered to lab for and thyroid labs Flowsheet Date 07/12/2024 Ferrell Score Blood Edema Fundus Height Fundus Units Glucose Ketones Leukocytes Nitrite Labor Signs Protein Cervic Dilation Cervic Effacement Cervic Station Type Weight in lbs Pre/Post Dialysis Refused BP Diastolic BP Location Tested BP Systolic BP Type Fetus Heart Rate Present Fetus Movement Comments Flowsheet Date 07/12/2024 Ferrell Score Blood Edema Fundus Height Fundus Units Glucose Ketones Leukocytes Nitrite Labor Signs Protein Cervic Dilation Cervic Effacement Cervic Station none Type Weight in lbs Pre/Post Dialysis Refused 195.629883727731 BP Diastolic BP Location Tested BP Systolic BP Type 62 115 Fetus Heart Rate Present Fetus Movement A Yes Comments Patient pelvic pain and rest less legs. reviewed US anatomy complete plan gct in 3 weeks, rpt tsh today, sleeping much better and no longer fatigued throughout the day. precautions and education f/u 3 weeks Flowsheet Date 08/02/2024 Ferrell Score Blood Edema Fundus Height Fundus Units Glucose Ketones Leukocytes Nitrite Labor Signs Protein Cervic Dilation Cervic Effacement Cervic Station none Type Weight in lbs Pre/Post Dialysis Refused 199.480100143055 BP Diastolic BP Location Tested BP Systolic BP Type 72 117 Fetus Heart Rate Present Fetus Movement A Yes Comments Patient is having pelvic parish n and discharge. ice ok, ok for tdap, rsv at 32 weeks, education and precautions will review thyroid with dr. mcbride, rpt labs next visit start nsts at 32 weeks, gct today Flowsheet Date 08/16/2024 Ferrell Score Blood Edema Fundus Height Fundus Units Glucose Ketones Leukocytes Nitrite Labor Signs Protein Cervic Dilation Cervic Effacement Cervic Station Type Weight in lbs Pre/Post Dialysis Refused 202.697035326642 BP Diastolic BP Location Tested BP Systolic BP Type 75 110 Fetus Heart Rate Present Fetus Movement A Yes Comments Patient states that angelo wi th intercourse and discharge. will call out flagyl, rpt tsh today feeling fatigued, +FM, precautions and education f/u 2 weeks Flowsheet Date 08/30/2024 Ferrell Score Blood Edema Fundus Height Fundus Units Glucose Ketones Leukocytes Nitrite Labor Signs Protein Cervic Dilation Cervic Effacement Cervic Station Type Weight in lbs Pre/Post Dialysis Refused BP Diastolic BP Location Tested BP Systolic BP Type Fetus Heart Rate Present Fetus Movement Comments Flowsheet Date 08/30/2024 Ferrell Score Blood Edema Fundus Height Fundus Units Glucose Ketones Leukocytes Nitrite Labor Signs Protein Cervic Dilation Cervic Effacement Cervic Station Type Weight in lbs Pre/Post Dialysis Refused BP Diastolic BP Location Tested BP Systolic BP Type Fetus Heart Rate Present Fetus Movement Comments Flowsheet Date 08/30/2024 Ferrell Score Blood Edema Fundus Height Fundus Units Glucose Ketones Leukocytes Nitrite Labor Signs Protein Cervic Dilation Cervic Effacement Cervic Station neg none Type Weight in lbs Pre/Post Dialysis Refused Weight 206.804117464536 BP Diastolic BP Location Tested BP Systolic BP Type 78 119 Fetus Heart Rate Present Fetus Movement A Yes Comments Patient is having some BH co ntractions reviewed precautions and education, efw 40% bpp 10, rsv and tdap rx given, f/u one week, call for preadmit Flowsheet Date 09/06/2024 Ferrell Score Blood Edema Fundus Height Fundus Units Glucose Ketones Leukocytes Nitrite Labor Signs Protein Cervic Dilation Cervic Effacement Cervic Station Type Weight in lbs Pre/Post Dialysis Refused BP Diastolic BP Location Tested BP Systolic BP Type Fetus Heart Rate Present Fetus Movement Comments Flowsheet Date 09/06/2024 Ferrell Score Blood Edema Fundus Height Fundus Units Glucose Ketones Leukocytes Nitrite Labor Signs Protein Cervic Dilation Cervic Effacement Cervic Station Type Weight in lbs Pre/Post Dialysis Refused BP Diastolic BP Location Tested BP Systolic BP Type Fetus Heart Rate Present Fetus Movement Comments Flowsheet Date 09/06/2024 Ferrell Score Blood Edema Fundus Height Fundus Units Glucose Ketones Leukocytes Nitrite Labor Signs Protein Cervic Dilation Cervic Effacement Cervic Station neg none Type Weight in lbs Pre/Post Dialysis Refused 208.685314032491 BP Diastolic BP Location Tested BP Systolic BP Type 70 104 Fetus Heart Rate Present Fetus Movement A Yes Comments Patient states that is havin g back pain. bpp 03/[address] sargent review with cnm, +FM doing well, check tsh today, has preadmit, getting vaccines this afternoon, precautions and education f/u one week Flowsheet Date 09/13/2024 Ferrell Score Blood Edema Fundus Height Fundus Units Glucose Ketones Leukocytes Nitrite Labor Signs Protein Cervic Dilation Cervic Effacement Cervic Station Type Weight in lbs Pre/Post Dialysis Refused BP Diastolic BP Location Tested BP Systolic BP Type Fetus Heart Rate Present Fetus Movement Comments Flowsheet Date 09/13/2024 Ferrell Score Blood Edema Fundus Height Fundus Units Glucose Ketones Leukocytes Nitrite Labor Signs Protein Cervic Dilation Cervic Effacement Cervic Station Type Weight in lbs Pre/Post Dialysis Refused Weight 207.752028680486 BP Diastolic BP Location Tested BP Systolic BP Type 71 114 Fetus Heart Rate Present Fetus Movement Comments Flowsheet Date 09/13/2024 Ferrell Score Blood Edema Fundus Height Fundus Units Glucose Ketones Leukocytes Nitrite Labor Signs Protein Cervic Dilation Cervic Effacement Cervic Station neg none Type Weight in lbs Pre/Post Dialysis Refused 207.251062307498 BP Diastolic BP Location Tested BP Systolic BP Type 71 114 Fetus Heart Rate Present Fetus Movement A Yes Comments Patient is having some disch arge. thyroid wnl at last visit, plan to recheck in a couple weeks bpp 03/14, has preadmit scheduled, f/u as scheduled, precautions and education Flowsheet Date 09/20/2024 Ferrell Score Blood Edema Fundus Height Fundus Units Glucose Ketones Leukocytes Nitrite Labor Signs Protein Cervic Dilation Cervic Effacement Cervic Station Type Weight in lbs Pre/Post Dialysis Refused BP Diastolic BP Location Tested BP Systolic BP Type Fetus Heart Rate Present Fetus Movement Comments Flowsheet Date 09/20/2024 Ferrell Score Blood Edema Fundus Height Fundus Units Glucose Ketones Leukocytes Nitrite Labor Signs Protein Cervic Dilation Cervic Effacement Cervic Station Type Weight in lbs Pre/Post Dialysis Refused BP Diastolic BP Location Tested BP Systolic BP Type Fetus Heart Rate Present Fetus Movement Comments Flowsheet Date 09/20/2024 Ferrell Score Blood Edema Fundus Height Fundus Units Glucose Ketones Leukocytes Nitrite Labor Signs Protein Cervic Dilation Cervic Effacement Cervic Station neg none Type Weight in lbs Pre/Post Dialysis Refused 210.402175891780 BP Diastolic BP Location Tested BP Systolic BP Type 71 107 Fetus Heart Rate Present Fetus Movement A Yes Comments Patient states that is havin g some pain. bpp 10/10 +FM, doing well precautions and education f/u one week, gbs collected Flowsheet Date 09/27/2024 Ferrell Score Blood Edema Fundus Height Fundus Units Glucose Ketones Leukocytes Nitrite Labor Signs Protein Cervic Dilation Cervic Effacement Cervic Station Type Weight in lbs Pre/Post Dialysis Refused BP Diastolic BP Location Tested BP Systolic BP Type Fetus Heart Rate Present Fetus Movement Comments Flowsheet Date 09/27/2024 Ferrell Score Blood Edema Fundus Height Fundus Units Glucose Ketones Leukocytes Nitrite Labor Signs Protein Cervic Dilation Cervic Effacement Cervic Station Type Weight in lbs Pre/Post Dialysis Refused Weight 209.793278152783 BP Diastolic BP Location Tested BP Systolic BP Type 78 123 Fetus Heart Rate Present Fetus Movement Comments Flowsheet Date 09/27/2024 Ferrell Score Blood Edema Fundus Height Fundus Units Glucose Ketones Leukocytes Nitrite Labor Signs Protein Cervic Dilation Cervic Effacement Cervic Station neg none Type Weight in lbs Pre/Post Dialysis Refused 209.061466373976 BP Diastolic BP Location Tested BP Systolic BP Type 78 123 Fetus Heart Rate Present Fetus Movement A Yes Comments +FM, doing well bpp 10/10, e fw 42%, education and precautions f/u one week Flowsheet Date 10/04/2024 Ferrell Score Blood Edema Fundus Height Fundus Units Glucose Ketones Leukocytes Nitrite Labor Signs Protein Cervic Dilation Cervic Effacement Cervic Station Type Weight in lbs Pre/Post Dialysis Refused BP Diastolic BP Location Tested BP Systolic BP Type Fetus Heart Rate Present Fetus Movement Comments Flowsheet Date 10/04/2024 Ferrell Score Blood Edema Fundus Height Fundus Units Glucose Ketones Leukocytes Nitrite Labor Signs Protein Cervic Dilation Cervic Effacement Cervic Station Type Weight in lbs Pre/Post Dialysis Refused Weight 210.289340169775 BP Diastolic BP Location Tested BP Systolic BP Type 76 119 Fetus Heart Rate Present Fetus Movement Comments Flowsheet Date 10/04/2024 Ferrell Score Blood Edema Fundus Height Fundus Units Glucose Ketones Leukocytes Nitrite Labor Signs Protein Cervic Dilation Cervic Effacement Cervic Station neg none 2cm 70% -3 Type Weight in lbs Pre/Post Dialysis Refused 210.901888724091 BP Diastolic BP Location Tested BP Systolic BP Type 76 119 Fetus Heart Rate Present Fetus Movement A Yes Comments Patient is having some pain and discharge. bpp 05/16 doing well +FM, precautions and education f/u next week Flowsheet Date 10/11/2024 Ferrell Score Blood Edema Fundus Height Fundus Units Glucose Ketones Leukocytes Nitrite Labor Signs Protein Cervic Dilation Cervic Effacement Cervic Station Type Weight in lbs Pre/Post Dialysis Refused BP Diastolic BP Location Tested BP Systolic BP Type Fetus Heart Rate Present Fetus Movement Comments Flowsheet Date 10/11/2024 Ferrell Score Blood Edema Fundus Height Fundus Units Glucose Ketones Leukocytes Nitrite Labor Signs Protein Cervic Dilation Cervic Effacement Cervic Station Type Weight in lbs Pre/Post Dialysis Refused Weight 214.369288343674 BP Diastolic BP Location Tested BP Systolic BP Type 79 122 Fetus Heart Rate Present Fetus Movement Comments Flowsheet Date 10/11/2024 Ferrell Score Blood Edema Fundus Height Fundus Units Glucose Ketones Leukocytes Nitrite Labor Signs Protein Cervic Dilation Cervic Effacement Cervic Station neg trace 2cm 70% -3 Type Weight in lbs Pre/Post Dialysis Refused Weight 214.705964148977 BP Diastolic BP Location Tested BP Systolic BP Type 79 122 Fetus Heart Rate Present A 140 Fetus Movement A Yes Comments Patient is having some swell ing. Good movement. No ctx, LOF, VB. SVE . Planning to wait for spontaneous labor. Induced at 41 weeks last time. Labor precautions reviewed. RTC 1 week. Flowsheet Date 10/18/2024 Ferrell Score Blood Edema Fundus Height Fundus Units Glucose Ketones Leukocytes Nitrite Labor Signs Protein Cervic Dilation Cervic Effacement Cervic Station Type Weight in lbs Pre/Post Dialysis Refused BP Diastolic BP Location Tested BP Systolic BP Type Fetus Heart Rate Present Fetus Movement Comments Flowsheet Date 10/18/2024 Ferrell Score Blood Edema Fundus Height Fundus Units Glucose Ketones Leukocytes Nitrite Labor Signs Protein Cervic Dilation Cervic Effacement Cervic Station Type Weight in lbs Pre/Post Dialysis Refused BP Diastolic BP Location Tested BP Systolic BP Type Fetus Heart Rate Present Fetus Movement Comments Flowsheet Date 10/18/2024 Ferrell Score Blood Edema Fundus Height Fundus Units Glucose Ketones Leukocytes Nitrite Labor Signs Protein Cervic Dilation Cervic Effacement Cervic Station neg none Type Weight in lbs Pre/Post Dialysis Refused Weight 215.910972859023 BP Diastolic BP Location Tested BP Systolic BP Type 80 116 Fetus Heart Rate Present Fetus Movement A Yes Comments Patient is having BH contrac tions and discharge. reviewed precautions bpp 03/14 ? early decel, toco unreadable will send to ld for nst, pt desires IOL will plan for next week, +FM precautions and education. reviewed mild rt pyelectasis Menstrual History Last Menstrual Date Menses Monthly On Bcp Conception Prior Menses Frequency Hcg Plus Date Menarche Onset Age 0601/07/2025 Delivery Information Delivery Date Delivery Type Labor Anesthesia Weeks Gestation Incision Type Labor Labor Length Hrs Delivered By Post Complications Tubal Sterilization Discharge Date Comments Discharge Information Feeding Method Contraceptive Method Maternal HG B and HCT Levels Ob Episode Information Episode Created Date Number of Fetuses Patient Bloodtype Patient rh Status Prepregnancy Weight lbs Domestic Partner Domestic Partner Phone Father Name Passenger Flagman Status 04/15/20 24 1 CLOSED Fetus Data First Name Last Name Admitted to NICU Weight (g) Sex Living Outcome Pediatric Complications Fetus ID Race Codes Race Delivery Type , Spontane ous [id number] Carlo Calculation Initial Carlo Date Initial Exam Date Initial Exam Provider Initial Ultrasound Date Last Menstrual Period Date Ultra Sound Weeks Gestation 0 Eighteen To Twenty Week Carlo Update Ultra Sound Date Fundal Height At Umbil Quickening Date Ultra Sound Latest Weeks Gestation Final Carlo Confirmed By Final Carlo Confirmed Date Final Carlo Date Ultra Sound Latest Days Gestation 0 0 Menstrual History Last Menstrual Date Menses Monthly On Bcp Conception Prior Menses Frequency Hcg Plus Date Menarche Onset Age Delivery Information Delivery Date Delivery Type Labor Anesthesia Weeks Gestation Incision Type Labor Labor Length Hrs Delivered By Post Complications Tubal Sterilization Discharge Date Comments 1 Discharge Information Feeding Method Contraceptive Method Maternal HG B and HCT Levels Ob Episode Information Episode Created Date Number of Fetuses Patient Bloodtype Patient rh Status Prepregnancy Weight lbs Domestic Partner Domestic Partner Phone Father Name Passenger Flagman Status 04/15/20 24 1 CLOSED Fetus Data First Name Last Name Admitted to NICU Weight (g) Sex Living Outcome Pediatric Complications Fetus ID Race Codes Race Delivery Type [id number] [phone] F Full Term [id number] Vaginal Delivery Carlo Calculation Initial Carlo Date Initial Exam Date Initial Exam Provider Initial Ultrasound Date Last Menstrual Period Date Ultra Sound Weeks Gestation 0 Eighteen To Twenty Week Carlo Update Ultra Sound Date Fundal Height At Umbil Quickening Date Ultra Sound Latest Weeks Gestation Final Carlo Confirmed By Final Carlo Confirmed Date Final Carlo Date Ultra Sound Latest Days Gestation 0 0 Menstrual History Last Menstrual Date Menses Monthly On Bcp Conception Prior Menses Frequency Hcg Plus Date Menarche Onset Age Delivery Information Delivery Date Delivery Type Labor Anesthesia Weeks Gestation Incision Type Labor Labor Length Hrs Delivered By Post Complications Tubal Sterilization Discharge Date Comments 1 41 Discharge Information Feeding Method Contraceptive Method Maternal HG B and HCT Levels
--- NOTE | 2024-10-22 07:00 | LDADM ---
This patient, Marisabel Whalen, was admitted to Labor/Delivery/Recovery 103 on 10/22/24 at 06:00. Plans for labor, pain management and were discussed with patient. Patient/family oriented to hospital policies and general routines including ID bracelet, bed and alarms, visiting hours, pain management, procedures, bathroom and other care routines, personal items, smoking policy, room service/diet and guest tray routines, infant security routines, and visiting hours. Patient/Family are encouraged to report perceived risks to care and to ask questions if they do not understand what they are told or what they should do. See OBIX for further documentation.
[2024-10-22 07:01] LABS: Basophils Percent Auto 0.5 % (0.2-1.2); Eosinophils Absolute Auto 0.1 K/mm3 (0-0.3); Hemoglobin 11.2 g/dL (12.0-15.0); Immature Granulocyte Absolute 0.03 K/mm3 (0.00-0.031); Immature Granulocyte Percent A 0.5 % (0-0.5); Lymphocytes Absolute Auto 1.22 K/mm3 (0.9-3.2); Lymphocytes Percent Auto 20.3 % (18.3-44.2); Mean Corpuscular HGB Conc 33.9 g/dl (32-36); Mean Corpuscular Hemoglobin 31.5 pg (26-34); Mean Corpuscular Volume 92.7 fl (80-100); Monocytes Absolute Auto 0.5 K/mm3 (0.1-0.6); Neutrophils Absolute Auto 4.1 K/mm3 (1.3-6.7); Neutrophils Percent Auto 68.7 % (45.5-73.1); Platelet Count Result 203 k/mm3 (150-375); Red Blood Count 3.56 M/mm3 (4.2-5.4); Red Cell Distribution Width 12.9 % (11.5-14.5)
[2024-10-22 07:39] LABS: Syphilis IgG/IgM Antibody Negative (Negative)
[2024-10-22 07:56] LABS: HIV 1/2 Ab P24 Ag Result Negative (Negative)
--- NOTE | 2024-10-22 07:56 | WPDOBADMIT ---
Obstetrics - Admit Note Admission Note: record reviewed. No pertinent additions to the history and/or any subsequent changes in the physical findings that are not consistent with the expected course of the were found. Additions to the history and/or subsequent changes in the physical findings follow. Admit for IOL, SVE 2-3 cm/70/-2 AROM moderate amount of clear odorless fluid, anticipate vaginal delivery
[2024-10-22] MEDS: OXYTOCIN 30 UNITS/NS 500 ML 30 UNITS/500 ML BAG IV CONT (11:34)
[2024-10-22] MEDS: LACTATED RINGERS 1,000 ML 125 ML IV CONT ×2 (11:35→16:29)
--- NOTE | 2024-10-22 16:23 | P.PNAN_ITS ---
Anes - Initial Pre Proc Eval Date/Time: 10/22/24 16:23 Surgeon: Lauri Ritter MD Pre Op Diagnosis: IOL Patient Data Age: 29 Gender: F Height: 1.68 m Weight: 97.5 kg Last Vital Signs Temp 36.6 C 10/22/24 15:00 Pulse 70 10/22/24 16:22 BP 119/66 10/22/24 16:22 Pulse Ox 100 10/22/24 16:19 O2 Del Method Room Air 10/22/24 06:50 Allergies Allergy/AdvReac Type Severity Reaction Status Date / Time No Known Allergies Allergy Verified 10/16/24 10:28 Home Medications ?Medication ?Instructions ?Recorded ?Confirmed ?Type ferrous sulfate 325 mg (65 mg 325 mg PO DAILY 09/27/24 10/22/24 History iron) tablet (Feosol) vit no.95-ferrous 1 tablet PO DAILY 09/27/24 10/22/24 History fumarate 28 mg-folic acid 800 mcg tablet () sertraline 50 mg tablet 25 mg PO DAILY 09/27/24 10/22/24 History levothyroxine 200 mcg tablet 200 mcg PO DAILY 10/16/24 10/22/24 History Laboratory Tests 10/22/24 06:47 WBC 6.0 K/mm3 (4.5-10.0) RBC 3.56 L M/mm3 (4.2-5.4) Hgb 11.2 L g/dL (12.0-15.0) Hct 33.0 L % (37.0-47.0) MCV 92.7 fl (80-100) MCH 31.5 pg (26-34) MCHC 33.9 g/dl (32-36) RDW 12.9 % (11.5-14.5) Plt Count 203 k/mm3 (150-375) MPV 12.0 H fl (7.4-10.4) Immature Gran % (Auto) 0.5 % (0-0.5) Neut % (Auto) 68.7 % (45.5-73.1) Lymph % (Auto) 20.3 % (18.3-44.2) Bracken % (Auto) 8.0 % (2.6-8.5) Eos % (Auto) 2.0 % (0-4.4) Baso % (Auto) 0.5 % (0.2-1.2) Lymph # (Auto) 1.22 K/mm3 (0.9-3.2) Bracken # (Auto) 0.5 K/mm3 (0.1-0.6) Eos # (Auto) 0.1 K/mm3 (0-0.3) Baso # (Auto) 0.0 K/mm3 (0.0-0.1) Abs Immat Gran (auto) 0.03 K/mm3 (0.00-0.031) Absolute Neuts (auto) 4.1 K/mm3 (1.3-6.7) Absolute Nucleated RBC 0.000 K/mm3 (0.0-0.012) Nucleated RBC % 0.0 % (0.0-0.2) Syphilis IgG/IgM Ab Negative (Negative) HIV 1&2 Ab/P24 Ag 4thGn Negative (Negative) Blood Type O Positive Antibody Screen Negative Patient hx anesthesia problems: none Family hx anesthesia problems: none Results Review: All pre-operative results and documents have been reviewed as part of the pre- operative evaluation. [facility] Family History Family History Mother Hypertension TIA (transient ischemic attack) Afib Hypercholesteremia Grandparent Hypertension Hypercholesteremia Acute myocardial infarction Grandparent Cervical cancer Grandparent Hypertension Grandparent Hypertension Asthma Social History Social History Smoking status: Never smoker Substance use: never Do You Feel Safe in your Home?: Yes Lack of Transportation: No Lack of Food: Never True Current Housing: I Have Housing Concerned About Future Housing: No Difficulty Paying Gas/Electric Bills: No Difficulty Paying for Meds: No Currently Unemployed: No Education: High School Diploma/GED Difficulty w/ Childcare or Family Care: No Spiritual care concerns: No Anes - Eval Final PreProcedure Day of Procedure 10/22/24 16:23 Patient weight: obese Neurological: alert and oriented ASA classification: II Emergent: no Anesthetic plan: proceed Anesthesia type and monitoring: regional epidural and standard monitoring Results Review: All pre-operative results and documents have been reviewed as part of the pre- operative evaluation. Informed Consent: The patient's anesthetic plan and its attendant risks and benefits were discussed with the patient/family/POA. Questions were solicited and answers provided to the satisfaction of the patient/family/POA.
--- NOTE | 2024-10-22 17:54 | PM.OBPRVD ---
OB - Vaginal Delivery Note Procedure Delivery date: 10/22/24 Induction method: AROM and Per Pitocin Protocol Delivery monitor: External FHT and External Uterine Route of delivery: Episiotomy description: None Laceration Description: Perineal - 1st Degree Delivery repair: vicryl Specimen: No Quantitative Blood Loss (ml): 80 Anesthesia type: Epidural Disposition: Floor Complications: No immediate complications [place] Baby Date of : 10/22/24 Time of : 17:40 Gestational Age by Date: 40 Infant gender: Male presentation: vertex position: Right Occiput Anterior Placenta delivery description: Spontaneous Cord Vessel Description: 3 Vessels and Delayed Cord Clamping score one minute: 8 score five minutes: 9
[2024-10-22] MEDS: OXYTOCIN 30 UNITS/NS 500 ML 30 UNITS/500 ML BAG 125 UNITS IV CONT (18:13)
[2024-10-22] MEDS: BENZOCAINE 20% AER SPR (*SP) 56 GM CAN 1 SPRAY TOPICAL (19:43)
[2024-10-22] MEDS: IBUPROFEN 600 MG TABLET PO (19:43)
[2024-10-22] MEDS: WITCH HAZEL 40 PADS 1 PAD TOPICAL (19:44)
[2024-10-23 00:26] VITALS: BP 113/71; PULSE 83; RESP 16; TEMP 36.6; O2SAT 97
[2024-10-23] MEDS: IBUPROFEN 600 MG TABLET PO (01:00)
[2024-10-23 04:30] LABS: Hemoglobin 10.3 g/dL (12.0-15.0)
[2024-10-23] MEDS: MULTIVIT/MIN/PREN/FOL AC/IRON TABLET 1 TAB PO (07:15)
[2024-10-23] MEDS: SERTRALINE HCL 25 MG TABLET PO (07:15)
[2024-10-23] MEDS: LEVOTHYROXINE SODIUM 100 MCG TABLET 200 MCG PO (07:15)
--- NOTE | 2024-10-23 07:22 | P.PNOB_ITS ---
OB - PN: Subj Subjective Date/time seen: 10/23/24 07:22 Interval history: pp day 1 doing well desires d/c home OB - PN: Obj Data Labs 10/23/24 04:04 Labs: Laboratory Results - last 24 hr 10/22/24 10/23/24 06:47 04:04 Hgb 10.3 L Hct 31.0 L Syphilis IgG/IgM Ab Negative HIV 1&2 Ab/P24 Ag 4thGn Negative Blood Type O Positive Antibody Screen Negative OB - PN A/P Plan day: 1 Plan: routine care and discharge home Time Spent With Patient Time: Total time spent is greater than 50% in coordination of care (as documented) at patient's floor/unit and/or counseling patient: Review of Systems 2 Review of Systems: All systems reviewed & are unremarkable except as noted in HPI and below Exam 2 Const: General: cooperative and healthy appearing Chest: Chest palpation & inspection: normal inspection of the chest Resp: Effort & Inspection: normal respiratory effort Cardio: Rate: regular rate GI: Other: soft Back/Spine/Pelvis: Back: no CVA tenderness Skin: General skin exam: normal color
--- NOTE | 2024-10-23 07:25 | PM.OBDSVD ---
DS: Admitting Diagnosis Discharge Date Admitting Diagnosis IOL DS: Discharge Diagnosis Discharge Diagnosis (1) Vaginal delivery: Code(s): O80 - Encounter for full-term uncomplicated delivery Status: Acute OB - DS: Summary OB Procedures : None OB Procedures Intrapartum: Spontaneous Vag Delivery OB Procedures: : None Peripartum Data Laceration Description: Perineal - 1st Degree Episiotomy description: None Time Spent with Patient Time attestation: Total time spent providing and/or coordinating discharge services: DS: Data Data Completed and Pending Labs on day of discharge: Labs from last 24 hours 10/23/24 10/22/24 04:04 06:47 Hgb 10.3 L Hct 31.0 L Syphilis IgG/IgM Ab Negative HIV 1&2 Ab/P24 Ag 4thGn Negative Blood Type O Positive Antibody Screen Negative Discharge Plan Discharge Attending physician on discharge: Lauri Ritter Discharging Clinician: Claudia Mathews Patient Disposition: Home, Self-Care Activity: pelvic rest Diet: regular Patient Instructions: Antibiotic Form Patient Language: Ethiopian Stand Alone Forms: General Discharge Information Follow-up/Referrals: Claudia Mathews CNM [Certified Nurse Olive Grader] - 4 Weeks Discharge Medications: Continued sertraline 50 mg tablet 25 mg PO DAILY PNV cmb#95-ferrous fumarate-FA [] 28 mg iron- 800 mcg tablet 1 tablet PO DAILY ferrous sulfate [Feosol] 325 mg (65 mg iron) tablet 325 mg PO DAILY levothyroxine 200 mcg tablet 200 mcg PO DAILY Date of admission: 10/22/24 06:00 Primary Care Provider: PHYSICIAN,BOBCAT OPERATOR Admitting Provider: Lauri Ritter Attending physician on admission: Lauri Ritter Condition: Stable
[2024-10-23 08:35] VITALS: BP 108/72; PULSE 95; RESP 18; TEMP 37.1; O2SAT 97
--- NOTE | 2024-10-23 12:15 | PC.NURSE ---
Introductions were made, then consulted with patient to assess needs related to . Discussed with mother her?plans to feed?her infant and the?experience so far. We reviewed working with the , supporting breast, protecting her nipples with an optimal deep latch, good positioning, and good hand washing. Encouraged understanding the benefits of skin to skin, responding to feeding cues, frequencies of feeding 8-12 times in 24 hours (approximately 2-3 hours), duration of feedings, milk production, intake/output feeding sheet and signs of adequate intake encouraging swallowing at the breast. Reviewed positioning and alignment, supporting breast, off-centered (asymmetrical latch) and leading with the chin with big, open, wide gape. latched optimally to the [right] breast in [cross cradle] position. Education given to the mother of how to visualize the suckling (with good rocking jaw motion) swallows (dropping of the lower jaw) and how to listen for drinking at the breast (the ka sound). The infant was [able] to maintain latch without discomfort to mother. Nipple care reviewed with optimal latch, good positioning and using clean hands when touching her breast. Resources used to facilitate learning were used from the [visual handouts/ tool/mom and baby guide]. Mother voiced understanding of the education shared, to call for assistance if the does not latch or if there is discomfort with . There are plans to leave at 24 hours of age so RN also went over discharge information. Mother is feeding appropriately for growth of and understands stimulating infant to eat if needed. Infant has had appropriate feedings in the last 19 hours meets the outcomes for weight, and output at this time. Reinforced understanding of milk production, transition of milk, signs of adequate intake, transition of stool, prevention/relief of engorgement, plugged ducts, mastitis, responsive watching for feeding cues, the different methods of stimulating infant to breastfeed 1-3 hours after the start of the last feeding, community resources, and when to call a provider using the resource of the feeding sheet along with the mom and baby guide. Mother voiced understanding of the information shared, is confident to continue effectively her at home, when to call for assistance, denies any additional assistance or education at this time. Reported to the Primary RN.
[2024-10-23 12:20] VITALS: BP 114/79; PULSE 88; RESP 18; TEMP 36.1; O2SAT 98
[2024-10-25 08:31] VITALS: BP 110/79; PULSE 89; RESP 18; TEMP 36.6; O2SAT 98
== END 2024-10-23 18:50 | disposition home or self-care (01) | DRG 807 ==
LOC: ANHLDR 06:04 → ANHOB2 20:28
PROVIDERS: Advanced Practice Midwife; Admitting Provider Obstetrics & Gynecology; Visit Provider Obstetrics & Gynecology
DX: O70.0 First degree perineal laceration during delivery (principal); Z37.0 Single live birth; Z3A.40 40 weeks gestation of pregnancy
CPT/HCPCS: 36415; 85014; 85018; 85025; 86593; 86703; 86850; 86900; 86901; A9270; G0432; J2590; J2795; J7120